=== PATIENT | male | born 1950 | race Caucasian/White ===

== ENCOUNTER → 2019-04-05 08:28 | Outpatient (CLI) | payer MEDICARE, OTHER, SELFPAY ==
--- NOTE | 2019-04-12 08:04 | PM.PFT.1 ---
Pulmonary Function Test Referral & Results Date Patient Seen: 04/05/19 Requesting provider: Светлана Tapia Indication: COPD Results: The spirometry demonstrates an FVC of 3.88 L which is 92% of predicted. The FEV1 was measured at 1.44 L which is 46% of predicted. The FEV1/FVC ratio was 37 which is 51% of predicted. Following the administration of bronchodilator there was no change. Lung volumes show an SVC of 2.72 L which is 61% of predicted. The diffusing capacity was measured at 12.7 to which is 41% of predicted. No hemoglobin value was provided, so no correction for potential anemia could be made, if appropriate. The maximum voluntary ventilation was reduced Interpretation: This study demonstrates moderately severe obstructive lung disease without evidence of benefit following bronchodilator administration There is also moderately severe restrictive lung disease present based on reduction SVC There is also severe reduction in diffusing capacity suggesting significant disease at the capillary alveolar level Altogether this is consistent with a diagnosis of moderately severe COPD
== END ==
PROVIDERS: Visit Provider Internal Medicine
DX: J44.9 Chronic obstructive pulmonary disease, unspecified (principal); F17.200 Nicotine dependence, unspecified, uncomplicated
CPT/HCPCS: 94060; 94726; 94729

== ENCOUNTER → 2021-10-28 15:31 | Outpatient (CLI) | payer MEDICARE, OTHER, SELFPAY ==
--- NOTE | 2021-10-28 | DI.MRI.S_ITS ---
PROCEDURE: MR LUMBAR SPINE WO CON INDICATIONS: Spinal stenosis, site unspecified TECHNIQUE: Noncontrast sagittal T1 spin echo and T2 fast echo, sagittal STIR, and T2 fast spin echo through the lumbar spine. In cases with scoliosis, additional coronal T2 fast spin echo may be performed. COMPARISON: [facility], CT, ABDOMEN/PELVIS WITH CONTRAST, 07/01/2016, 10:42. [facility], , SPINE LUMB 6+VW, 12/01/2014, 14:16. FINDINGS: Image quality: Excellent. Alignment and Curvature: Bilateral posterior lateral wil and pedicle screw fixation from L4-L5 through L5-S1. Remote left hemilaminectomy at both levels. Anterolisthesis of L5 on S1 is similar to the prior CT scan, measuring 8 mm. Again noted is retrolisthesis of L3 on L4, measuring 6 mm. Bone Marrow: Marrow is of normal overall signal. No acute vertebral body compression fractures. Spinal Cord: Conus medullaris terminates at the L2-L3 level. Visualized cord demonstrates normal signal and size. Paraspinous Soft Tissues: No paravertebral masses. T12-L1: Disc bulge. No canal stenosis or foraminal stenosis. L1-L2: Severe disc height loss. Disc bulge. No significant canal stenosis. Mild bilateral foraminal stenosis. L2-L3: Disc bulge. Facet hypertrophy. Mild canal stenosis. Mild right foraminal stenosis. L3-L4: Moderately severe disc height loss. Retrolisthesis of L3 on L4. Borderline canal stenosis. Ftlb-ti-upthbegu bilateral foraminal narrowing. L4-L5: Fused. No canal stenosis. Mild left foraminal stenosis. L5-S1: Fused. Anterolisthesis of L5 on S1. No canal stenosis. Moderate to severe right foraminal narrowing and severe left foraminal narrowing with bilateral foraminal L5 nerve root impingement. IMPRESSION: 1. Remote decompressive laminectomy and fusion from L4 through S1. 2. At L5-S1, there is moderate to severe right foraminal narrowing and severe left foraminal narrowing with bilateral foraminal L5 nerve root impingement. 3. Canal stenosis is mild at L2-L3 and borderline at L3-L4. Dictated by: Jonathan Lopez M.D. on 10/29/2021 at 12:02 Approved by: Jonathan Lopez M.D. on 10/29/2021 at 12:13
== END ==
PROVIDERS: PCP Student in an Organized Health Care Education/Training Program; Referring Provider Student in an Organized Health Care Education/Training Program; Visit Provider Student in an Organized Health Care Education/Training Program
DX: M48.061 Spinal stenosis, lumbar region without neurogenic claudication (principal); M48.07 Spinal stenosis, lumbosacral region; Z98.1 Arthrodesis status
CPT/HCPCS: 72148

== ENCOUNTER 2022-03-15 14:52 | Outpatient (CLI) | payer MEDICARE, OTHER, SELFPAY ==
[2022-03-15] VITALS (7 sets, daily range): BP systolic 141–161; BP diastolic 76–95; PULSE 77–86; RESP 16–23; TEMP 36.6; O2SAT 90–100
--- NOTE | 2022-03-15 14:55 | DI.RAD.S_ITS ---
PROCEDURE: PAIN L/S TRANSFORAMINAL INJECT INDICATIONS: SPONDYLOSIS COMPARISON: None. FINDINGS: Fluoroscopic spot filming was performed to verify placement of spinal needles at the left L3-L4 neural foramen level(s), as labeled on the films. Appropriate location(s) of the needle tip(s) was confirmed by injection of iodinated contrast. IMPRESSION: Access needle at the left L3-L4 neural foramen for transforaminal epidural steroid injection. Dictated by: Ana Laura Gibbs MD, PhD on 03/15/2022 at 16:36 Approved by: Ana Laura Gibbs MD, PhD on 03/15/2022 at 16:36
[2022-03-15] MEDS: MIDAZOLAM 2 MG/2 ML VIAL IV (15:32)
[2022-03-15] MEDS: IOPAMIDOL 15 ML VIAL 3 ML INJ (15:43)
[2022-03-15] MEDS: BUPIVACAINE 0.25% (PF) VIAL 5 ML SUBCUT (15:43)
[2022-03-15] MEDS: BETAMETHASONE 30 MG/5 ML MDV 6 MG INJ (15:44)
[2022-03-15] MEDS: DEXAMETHASONE 10 MG/ML VIAL 20 MG INJ (15:44)
--- NOTE | 2022-03-15 15:53 | PM.PROC.IR.1 ---
Date/Time/Diagnoses Date of procedure: 03/15/22 Time of procedure: 15:53 Pre-procedure diagnosis: 1. FORAMINAL STENOSIS WITH LE SYMPTOMS Post-procedure diagnosis: same Procedure Notes Procedure: 1. FLUOROSCOPICALLY GUIDED CONTRAST CONTROLLED TRANSFORAMINAL EPIDURAL STEROID INJECTION - LEFT L3/4 TFESI Indications: Trever is referred by Dr. Diaz for treatment of Foraminal Stenosis with left LE Symptoms Physician: Osmin Miles Total Fluoroscopy time (seconds): 9 Total sedation minutes: 13 Complications: none Procedure in detail & Post-procedure care: FINDINGS Foraminal Nerve Root Compression secondary to disc disease and facet hypertrophy DESCRIPTION OF PROCEDURE Following review of allergy and review of potential side effects and complications, including, but not necessarily limited to, infection, allergic reaction, local tissue breakdown, stroke, temporary or permanent nerve injury, paralysis, and possible , the patient indicated that the patient understood and agreed to proceed. An informed consent document was signed by the patient, witnessed by a nurse, and placed in the patient's chart. Additionally, other treatment options including medications, modalities, and physical therapy were reviewed with the patient. After review of previous anaesthesic history and IV conscious sedation the patient was deemed safe to proceed with today?s procedure with IV conscious sedation as ASA class II designation. Safety time-out was performed to confirm patient ID, procedure to be performed and site of procedure. IV sedation was accomplished with a combination of 2mg of Versed was administered by the RN after DO order, titrated to patient comfort during the course of the procedure while the patient remained responsive to all verbal commands In the prone position following sterile prep and drape of the lumbar region, the left L3/4 posterior neuroforamen was identified fluoroscopically. The skin was anesthetized via a 25-gauge 1.5-inch needle with 1% lidocaine solution. At this point, a 25-gauge 3.5-inch spinal needle was atraumatically introduced and advanced under fluoroscopic guidance through the posterior left L3/4 neuroforamen to approximately the anterior aspect of the canal. Depth was confirmed on lateral view. Following negative aspiration, injection of approximately 1.5 cc of Isovue 200 under live fluoroscopy in the AP view confirmed excellent flow along the nerve root, into the epidural space without vascular or intrathecal uptake observed Radiological data, including multiple fluoroscopic views of the lumbosacral spine, reveal a spinal needle at the left L3/4 posterior neuroforamen. Subsequent views show flow of contrast material flowing superiorly and inferiorly along the nerve root confirming epidural flow. Subsequently, a test dose of 1.5cc of 1% lidocaine solution was administered and patient was observed for two minutes for signs or symptoms of complications, including abdominal pain, shortness of breath, bilateral upper or lower extremity weakness, nausea and vomiting, prior to steroid injection. At this point, a total of 3cc or 20mg of dexamethasone and 6mg betamethasone was injected without incident. The patient tolerated the procedure well without signs or symptoms of complications prior to transfer to the recovery area continued monitoring without incident. The patient was then transferred to the recovery area where they were observed for an appropriate time after the injection. The patient reported a VAS score of 7 prior to the procedure and a post-procedure VAS of 0. POST OP INSTRUCTIONS The patient was provided a Pain Log to continue to record their response to the target-specific procedure prior to follow-up visit with their referring physician. Additionally, specific post-injection care instructions and a contact number to our office were provided if concerns arise regarding possible complications associated with the procedure are suspected.
== END 2022-03-15 16:08 | disposition home or self-care (01) ==
PROVIDERS: PCP Student in an Organized Health Care Education/Training Program; Referring Provider Physical Medicine & Rehabilitation; Visit Provider Physical Medicine & Rehabilitation
DX: M48.061 Spinal stenosis, lumbar region without neurogenic claudication (principal); M51.16 Intervertebral disc disorders with radiculopathy, lumbar region
CPT/HCPCS: 64483; 99152; J0702; J1100; J2250; J3490

== ENCOUNTER 2022-09-03 18:41 | Inpatient (IN) | payer MEDICARE, OTHER, SELFPAY ==
[2022-09-03] VITALS (10 sets, daily range): BP systolic 163–197; BP diastolic 83–131; PULSE 68–89; RESP 18–34; TEMP 36.5–37; O2SAT 90–98; BMI 17.4
--- NOTE | 2022-09-03 19:09 | DI.CT.S_ITS ---
PROCEDURE: CT STROKE INDICATIONS: right sided facial droop, unsteady gait TECHNIQUE: Noncontrast 4.5 mm thick angled axial sections acquired from the foramen magnum to the vertex, with coronal reformats. For radiation dose reduction, the following was used: automated exposure control, adjustment of mA and/or kV according to patient size. COMPARISON: None. FINDINGS: Image quality: Excellent. CSF spaces: Basal cisterns are patent. No extra-axial fluid collections. The ventricles are symmetric in size and shape. Brain: No intracranial bleeds or masses. There is cerebral volume loss for age, with resultant ventricular and sulcal prominence. There are periventricular and deep white matter chronic small vessel ischemic changes. There is intracranial internal carotid artery atherosclerosis. Skull and face: Calvarium and visualized facial bones appear intact, without suspicious lesions. Sinuses: Visualized sinuses and mastoids are clear. IMPRESSION: 1. No acute intracranial process. 2. Moderate atrophy and chronic microvascular ischemic changes. The above findings were discussed with Dr. Cherri David on 09/03/2022 at 7:25 p.m. This study fulfills neurological imaging criteria for inclusion or exclusion of acute stroke therapies based on available published neurological guidelines. Approved by: Joan Salvador M.D. on 09/03/2022 at 19:27
--- NOTE | 2022-09-03 19:10 | DI.CT.S_ITS ---
PROCEDURE: CT ANGIO HEAD AND NECK INDICATIONS: right sided facial droop, unsteady gait TECHNIQUE: After the administration of intravenous contrast, 1 mm thick sections acquired from the aortic arch through the [place] of [place]. Post-contrast 4.5 mm thick sections then re-acquired from the foramen magnum to the vertex. 3-dimensional cnxmtuc-fkmwwtrmk-azhzvqnomi (MIP) and/or volume rendering reformats were acquired of the central intracranial vasculature and neck separately. For radiation dose reduction, the following was used: automated exposure control, adjustment of mA and/or kV according to patient size. COMPARISON: Outside Film, CT, CT LOW DOSE LUNG CA SCREENING, 06/18/2020, 13:22. [facility], CT, CT STROKE, 09/03/2022, 19:15. FINDINGS: Image quality: Excellent. BRAIN: The ventricular system and cortical sulci demonstrate atrophy, consistent for the patient's stated age. There are areas of hypodensity within the periventricular and subcortical white matter. There is no acute intra-or extra axial fluid collection. No acute hemorrhage, mass lesion or midline shift. Brainstem is unremarkable. Globes are symmetrical. Sinuses are aerated. Multiple rounded lucencies are noted within the calvarium. No priors are available for comparison. 1 cm focus of slight increased attenuation is noted within the subcutaneous fat of the posterior occipital scalp. No priors are available for comparison. HEAD CT ANGIOGRAPHY: Anterior circulation: Intracranial internal carotid arteries are normal in size and flow. The flow within the paired anterior cerebral arteries is normal and symmetric. The flow within the middle cerebral arteries is normal and symmetric. The anterior communicating artery is seen. No aneurysms are seen. Posterior circulation: Right vertebral artery is dominant. Visualized portions of the vertebral arteries demonstrate normal caliber, and join to form a normal appearing basilar artery. Flow within the posterior cerebral arteries is normal and symmetric. No aneurysms are seen. 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 There is interval small dilation of the ascending thoracic aorta measuring 4 cm. This is unchanged compared to prior exam. The origins of the common carotid arteries appear patent. The common carotid arteries demonstrate normal caliber and courses. The bifurcation regions are both widely patent. There is approximate 50% narrowing at the origin of the right internal carotid artery.. Posterior circulation: The origins of the vertebral arteries both appear widely patent. The more superior extracranial portions of both vertebral arteries also demonstrate normal courses and calibers. They join to form a normal appearing basilar artery. Soft tissues: Visualized neck soft tissues demonstrate no suspicious abnormalities. Bones: No suspicious bony lesions. Visualized cervical spine appears normally aligned. IMPRESSION: 1. No acute intracranial process. 2. Moderate atrophy and chronic microvascular ischemic changes. 3. No areas of hemodynamically significant stenosis, vascular occlusion or aneurysmal dilation within the anterior circulation. 4. 50% stenosis is noted at the origin of the right internal carotid artery. 5. Rounded lucencies within calvarium. These could represent prominent intraosseous vascular structures. No priors are available for comparison. If concern is present for potential metastatic disease, bone scan may be obtained. Any quantitative measurements of stenosis were performed using NASCET criteria. Dictated by: Joan Salvador M.D. on 09/03/2022 at 19:37 Approved by: Joan Salvador M.D. on 09/03/2022 at 19:43
--- NOTE | 2022-09-03 19:11 | ED_ITS ---
HPI - General Adult General Chief complaint: Shortness of Breath/Dyspnea Stated complaint: SOB, Can't eat, dizzy, L side pain, Fallx2 today Time Seen by Provider: 09/03/22 18:47 Source: patient Mode of arrival: Wheelchair History of Present Illness HPI narrative: 72-year-old gentleman with a history of COPD with continued tobacco abuse, h istory of BPH and no other significant medical complaints comes in after calling his son and granddaughter to come pick him up at the [facility] where he has been enjoying himself much of the day. Reported falling twice today once where he just ?sort of crumpled another where he stood up look to the left was significantly dizzy and fell backward. He does not describe any injuries with either fall did not hit his head with either fallen is not currently anticoagulated. He complains that he is dizzy which is reason for coming in today. His family notes that he was admitted to [facility] ?a couple of weeks ago?. Family is not quite sure why and the patient says ?for the same thing? but is unable to elucidate further. He notes that he has been short of breath for the past 2 years, he has a mild headache now, he is dizzy he is not nauseated. He does not report fevers, cough, chills, palpitations, lower extremity edema. His son notes that he only spends the day at the [facility], fam pedraza notes that he never drinks, and he felt well enough this morning to follow through with his usual day and plans. Related Data Home Medications Medication Instructions Recorded Confirmed sildenafil 25 mg tablet (Viagra) PO PRN PRN #0 tabs 12/02/15 03/09/22 albuterol sulfate 90 mcg/actuation 1 puff inhalation ONCE 03/09/22 03/09/22 aerosol inhaler (ProAir HFA) fluticasone 500 mcg-salmeterol 50 1 inh inhalation ONCE 03/09/22 03/09/22 mcg/dose blistr powdr for inhalation (Advair Diskus) loratadine 10 mg tablet 10 mg PO DAILY 03/09/22 03/09/22 tamsulosin 0.4 mg capsule 0.4 mg PO BEDTIME 03/09/22 03/09/22 Previous Rx's Medication Instructions Recorded celecoxib 200 mg capsule (Celebrex) 200 mg PO DAILY #30 caps 06/29/22 Allergies Allergy/AdvReac Type Severity Reaction Status Date / Time varenicline [From Chantix] Allergy Severe Difficulty Verified 09/03/22 18:58 Breathing Penicillins [PENICILLINS] AdvReac Severe ITCHING Verified 09/04/22 08:23 bupropion AdvReac Intermediate TREMORS Verified 09/04/22 08:23 [From Wellbutrin SR] hydrocodone [HYDROCODONE] AdvReac Intermediate ITCHING Verified 09/04/22 08:23 Review of Systems Review of Systems Narrative: Pertinent positive and negative findings as per HPI Patient History Medical History COPD (chronic obstructive pulmonary disease) Lumbar foraminal stenosis Lumbar stenosis with neurogenic claudication Tobacco abuse Surgical History H/O nasal polypectomy H/O: vasectomy History of ankle surgery History of hernia surgery History of lumbar surgery S/P lumbar spinal fusion Social History household members: spouse and none Smoking Status: Current every day smoker alcohol intake: current Smoking Status: Current every day smoker alcohol intake frequency: holidays/special occasions only Substance Use Type: does not use Exam Initial Vital Signs Initial Vital Signs: Vital Signs Temperature 97.7 F 09/03/22 18:55 Pulse Rate 89 09/03/22 18:55 Respiratory Rate 18 09/03/22 18:55 Blood Pressure 188/91 H 09/03/22 18:55 Pulse Oximetry 93 09/03/22 18:55 Oxygen Delivery Method Room Air 09/03/22 18:55 General: Older, chronically ill-appearing thin but in no acute distress HEENT: Moist mucous membranes, normal sclera with reactive pupils, poor dentition Neck: No JVD, supple Respiratory: Lungs with minor bibasilar crackles and minor scattered wheeze. Full and symmetrical movement Cardiac: Regular rate and rhythm no murmurs no bruits Abdomen: Soft, nontender, good bowel tones, no flank pain Skin: Warm and dry, no rashes, chronic venous stasis changes. He has scattered subcutaneous nodules right upper chest, midline posterior neck and along his thoracic spine. These are not tender to touch Neurologic: He has a mild right facial droop. Mild dysarthria. Positive Romberg he is unable to stand up without leaning backward and unable to even sit on bed without leaning backward. Does not note weakness in lower extremities or sensory abnormalities. Has some difficulty with heel polanco testing using his left leg. It is not clear if this is new or would have been problematic previously Extremities: No trauma, no lower extremity edema Psych: Cooperative, appropriate insight and affect NIH Stroke Scale/Score (NIHSS) RESULT SUMMARY: 4 points NIH Stroke Scale INPUTS: 1A: Level of consciousness ?> 0 = Alert; keenly responsive 1B: Ask month and age ?> 0 = Both questions right 1C: 'Blink eyes' & 'squeeze hands' ?> 0 = Performs both tasks 2: Horizontal extraocular movements ?> 0 = Normal 3: Visual blake ?> 0 = No visual loss 4: Facial palsy ?> 1 = Minor paralysis (flat nasolabial fold, smile asymmetry) 5A: Left arm motor drift ?> 0 = No drift for 10 seconds 5B: Right arm motor drift ?> 0 = No drift for 10 seconds 6A: Left leg motor drift ?> 0 = No drift for 5 seconds 6B: Right leg motor drift ?> 0 = No drift for 5 seconds 7: Limb Ataxia ?> 1 = Ataxia in 1 Limb 8: Sensation ?> 0 = Normal; no sensory loss 9: Language/aphasia ?> 1 = Mild-moderate aphasia: some obvious changes, without significant limitation 10: Dysarthria ?> 1 = Mild-moderate dysarthria: slurring but can be understood 11: Extinction/inattention ?> 0 = No abnormality Course Orders Ordered: Acetaminophen (Acetaminophen 325 Mg Tablet) 650 mg PO Q6H PRN PRN Reason: Fever/Mild Pain (1-3) Last Admin: 09/04/22 15:34 Dose: 650 mg Documented By: Admin: 09/04/22 08:30 Dose: 650 mg Documented By: BEN Albuterol/Ipratropium (Albuterol/Ipratropium 3 Ml Ampul) 3 ml INH RTQ4HR PRN PRN Reason: Shortness Of Breath Last Admin: 09/04/22 01:22 Dose: 3 ml Documented By: Aspirin (Aspirin Ec 81 Mg Tablet) 81 mg PO DAILY GILMA Last Admin: 09/04/22 08:12 Dose: 81 mg Documented By: SB Atorvastatin Calcium (Atorvastatin 20 Mg Tablet) 80 mg PO BEDTIME [facility] Last Admin: 09/04/22 20:28 Dose: 80 mg Documented By: AM Calcitonin [place] (Calcitonin,[place] 400 Units/2 Ml Mdv) 200 units IM Q12H [facility] Last Admin: 09/04/22 20:30 Dose: 200 units Documented By: AM Heparin Sodium (Porcine) (Heparin 5,000 Unit/Ml Vial) 5,000 unit SUBCUT BID [facility] Last Admin: 09/04/22 20:29 Dose: 5,000 unit Documented By: Admin: 09/04/22 08:12 Dose: 5,000 unit Documented By: SB Hydromorphone HCl (Hydromorphone 0.5 Mg Inj) 0.5 mg IV Q4H PRN PRN Reason: Pain, Moderate (4-6) Last Admin: 09/04/22 20:28 Dose: 0.5 mg Documented By: Admin: 09/04/22 16:46 Dose: 0.5 mg Documented By: Admin: 09/04/22 00:55 Dose: 0.5 mg Documented By: Sodium Chloride (Normal Saline 0.9%) 1,000 mls @ 100 mls/hr IV CONT [facility] Last Admin: 09/05/22 04:10 Dose: 100 mls/hr Documented By: Infusion: 09/04/22 21:50 Dose: 100 mls/hr Documented By: Admin: 09/04/22 16:50 Dose: 200 mls/hr Documented By: Infusion: 09/04/22 16:21 Dose: 100 mls/hr Documented By: Admin: 09/04/22 11:21 Dose: 200 mls/hr Documented By: Infusion: 09/04/22 08:57 Dose: 200 mls/hr Documented By: Admin: 09/04/22 03:57 Dose: 200 mls/hr Documented By: Infusion: 09/04/22 03:23 Dose: 200 mls/hr Documented By: Admin: 09/03/22 22:23 Dose: 200 mls/hr Documented By: MS Ceftriaxone Sodium 1,000 mg/ (Sodium Chloride) 100 mls @ 200 mls/hr IV Q24H [facility] Last Admin: 09/04/22 22:32 Dose: 200 mls/hr Documented By: Infusion: 09/03/22 23:28 Dose: 200 mls/hr Documented By: Admin: 09/03/22 22:58 Dose: 200 mls/hr Documented By: Naloxone HCl (Naloxone 0.4 Mg/Ml Vial) 0.2 mg IV Q2MIN PRN PRN Reason: Opiate Reversal Ondansetron HCl (Ondansetron 4 Mg/2 Ml Inj) 4 mg IV Q8HR PRN PRN Reason: Nausea And Vomiting Last Admin: 09/04/22 20:49 Dose: 4 mg Documented By: Admin: 09/04/22 01:00 Dose: 4 mg Documented By: Oxycodone HCl (Oxycodone Ir 5 Mg Tablet) 5 mg PO Q4HR PRN PRN Reason: Pain, Moderate (4-6) Tamsulosin HCl (Tamsulosin 0.4 Mg Capsule) 0.4 mg PO DAILY GILMA Discontinued Medications Acetaminophen (Acetaminophen 325 Mg Tablet) 975 mg PO NOW ONE Stop: 09/03/22 20:24 Last Admin: 09/03/22 20:41 Dose: 975 mg Documented By: KEN Calcitonin [place] (Calcitonin,[place] 400 Units/2 Ml Mdv) 250 units SUBCUT NOW ONE Stop: 09/03/22 20:04 Last Admin: 09/03/22 21:04 Dose: 250 units Documented By: KEN Calcitonin [place] (Calcitonin,[place] 400 Units/2 Ml Mdv) 200 units IM Q12HR [facility]ILMA Last Admin: 09/04/22 13:05 Dose: Not Given Documented By: Admin: 09/04/22 10:25 Dose: 200 units Documented By: BEN Zoledronic Acid 4 mg/ Sodium (Chloride) 105 mls @ 315 mls/hr IV NOW ONE Stop: 09/03/22 20:04 Last Infusion: 09/03/22 21:57 Dose: 0 mls/hr Documented By: Admin: 09/03/22 20:39 Dose: 315 mls/hr Documented By: SPF Sodium Chloride (Normal Saline 0.9%) 1,000 mls @ 1,000 mls/hr IV BOLUS ONE Stop: 09/03/22 21:02 Last Infusion: 09/03/22 21:57 Dose: 0 mls/hr Documented By: Admin: 09/03/22 20:24 Dose: 1,000 mls/hr Documented By: SPF Potassium Chloride (Potassium Chloride 20 Meq Tab) 40 meq PO NOW ONE Stop: 09/03/22 20:24 Last Admin: 09/03/22 20:41 Dose: 40 meq Documented By: SPF Potassium Chloride (Potassium Chloride 20 Meq Tab) 40 meq PO NOW ONE Stop: 09/04/22 08:30 Last Admin: 09/04/22 10:25 Dose: 40 meq Documented By: SB Vital Signs Vital signs: Vital Signs - 8 hr 09/03/22 18:55 09/03/22 19:00 09/03/22 19:23 Temperature 97.7 F Pulse Rate 89 82 71 Respiratory Rate 18 24 25 H Blood Pressure 188/91 H 182/89 H 163/83 H Pulse Oximetry 93 92 90 L Oxygen Delivery Method Room Air Room Air Room Air 09/03/22 20:00 Temperature Pulse Rate 75 Respiratory Rate 28 H Blood Pressure Pulse Oximetry 90 L Oxygen Delivery Method Room Air Medical Decision Making Lab Data 09/04/22 05:45 09/04/22 05:45 Labs: Lab Results 09/03/22 09/03/22 09/03/22 Range/Units 19:05 19:05 19:05 WBC 11.6 H (4.5-11.0) X10^3/uL RBC 4.62 (4.5-5.9) X10^6/uL Hgb 13.4 L (13.5-17.5) g/dL Hct 40.8 L (41-53) % MCV 88.5 (80-100) fL MCH 29.0 (26-34) PG MCHC 32.8 (30-36) % RDW 13.7 (11.6-14.8) % Plt Count 321 (150-400) X10^3/uL Neut % (Auto) 80.1 H (50-75) % Lymph % (Auto) 7.4 L (25-40) % [place] % (Auto) 11.6 (3-14) % Eos % (Auto) 0.5 L (2-4) % Baso % (Auto) 0.4 (0-2) % Neut # (Auto) 9300 H (9006-2670) /uL Lymph # (Auto) 900 L (5758-7722) /uL [place] # (Auto) 1300 H (0-900) /uL Eos # (Auto) 100 (0-450) /uL Baso # (Auto) 0 (0-100) /uL PT 11.4 (10.1-12.7) SECONDS INR 1.0 (0.9-1.3) APTT 23 L (26-36) SECONDS Sodium 131 L (137-145) mmol/L Potassium 3.2 L (3.4-5.1) mmol/L Chloride 89 L (98-107) mmol/L Carbon Dioxide 39 H (22-32) mmol/L BUN 29 H (9-20) mg/dL Creatinine 1.88 H (0.66-1.25) mg/dL Estimated GFR 37 L (>60) mL/min BUN/Creatinine Ratio 15.4 (6-22) Glucose 94 (80-110) mg/dL Calcium 15.5 H* (8.4-10.2) mg/dL Total Bilirubin 0.9 (0.2-1.3) mg/dL AST 46 (17-59) IU/L ALT 24 (<50) IU/L Alkaline Phosphatase 100 (38-126) U/L Total Creatine Kinase 109 (55-170) U/L CK-MB (CK-2) 2.57 H (<2.37) ng/mL CK-MB (CK-2) Rel Index 2.4 (1.5-5.0) % Troponin I < 0.012 (0.01-0.034) ng/mL Total Protein 6.6 (6.3-8.2) g/dL Albumin 3.3 L (3.5-5.0) g/dL Globulin 3.3 (1.7-4.1) g/dL Albumin/Globulin Ratio 1.0 (1.0-2.8) Urine Color Urine Appearance Urine pH (4.5-8.0) Ur Specific [place] (1.000-1.035) Urine Protein (Negative) Urine Glucose (UA) (Negative) g/dL Urine Ketones (NEGATIVE) Urine Occult Blood (Negative) Urine Nitrate (Negative) Urine Bilirubin (NEGATIVE) Urine Urobilinogen (0.2) E.U./dL Ur Leukocyte Esterase (NEGATIVE) Urine RBC (0-5/HPF) Urine WBC (0-5/HPF) Ur Squamous Epith Cells (0-5/HPF) Urine Bacteria (None) Hyaline Casts (None) Ur Culture Indicated? U Opiates 300ng/mL cut (Negative) Ur Oxycodone Screen (Negative) Urine Methadone Screen (Negative) Ur Barbiturates Screen (Negative) U Tricyclic Antidepress (Negative) Ur Phencyclidine Scrn (Negative) Ur Amphetamines Screen (Negative) U Methamphetamines Scrn (Negative) Ur MDMA Scrn (Ecstasy) (Negative) U Benzodiazepines Scrn (Negative) Urine Cocaine Screen (Negative) U Marijuana (THC) Screen (Negative) Ethyl Alcohol < 10 ( - 10) mg/dL SARS-CoV-2 (PCR) (Negative) 09/03/22 09/03/22 09/03/22 Range/Units 19:40 20:12 20:12 WBC (4.5-11.0) X10^3/uL RBC (4.5-5.9) X10^6/uL Hgb (13.5-17.5) g/dL Hct (41-53) % MCV (80-100) fL MCH (26-34) PG MCHC (30-36) % RDW (11.6-14.8) % Plt Count (150-400) X10^3/uL Neut % (Auto) (50-75) % Lymph % (Auto) (25-40) % [place] % (Auto) (3-14) % Eos % (Auto) (2-4) % Baso % (Auto) (0-2) % Neut # (Auto) (4974-6080) /uL Lymph # (Auto) (8027-6015) /uL [place] # (Auto) (0-900) /uL Eos # (Auto) (0-450) /uL Baso # (Auto) (0-100) /uL PT (10.1-12.7) SECONDS INR (0.9-1.3) APTT (26-36) SECONDS Sodium (137-145) mmol/L Potassium (3.4-5.1) mmol/L Chloride (98-107) mmol/L Carbon Dioxide (22-32) mmol/L BUN (9-20) mg/dL Creatinine (0.66-1.25) mg/dL Estimated GFR (>60) mL/min BUN/Creatinine Ratio (6-22) Glucose (80-110) mg/dL Calcium (8.4-10.2) mg/dL Total Bilirubin (0.2-1.3) mg/dL AST (17-59) IU/L ALT (<50) IU/L Alkaline Phosphatase (38-126) U/L Total Creatine Kinase (55-170) U/L CK-MB (CK-2) (<2.37) ng/mL CK-MB (CK-2) Rel Index (1.5-5.0) % Troponin I (0.01-0.034) ng/mL Total Protein (6.3-8.2) g/dL Albumin (3.5-5.0) g/dL Globulin (1.7-4.1) g/dL Albumin/Globulin Ratio (1.0-2.8) Urine Color Yellow Urine Appearance Slightly cloudy Urine pH 5.5 (4.5-8.0) Ur Specific [place] 1.015 (1.000-1.035) Urine Protein Negative (Negative) Urine Glucose (UA) Negative (Negative) g/dL Urine Ketones Negative (NEGATIVE) Urine Occult Blood Trace-intact (Negative) Urine Nitrate Negative (Negative) Urine Bilirubin Negative (NEGATIVE) Urine Urobilinogen 0.2 (0.2) E.U./dL Ur Leukocyte Esterase 1+ H (NEGATIVE) Urine RBC None seen (0-5/HPF) Urine WBC 10-30/hpf H (0-5/HPF) Ur Squamous Epith Cells 0-1 /hpf (0-5/HPF) Urine Bacteria Many (>30) H (None) Hyaline Casts 0-1/lpf (None) Ur Culture Indicated? Specimen cultured U Opiates 300ng/mL cut Negative (Negative) Ur Oxycodone Screen Negative (Negative) Urine Methadone Screen Negative (Negative) Ur Barbiturates Screen Negative (Negative) U Tricyclic Antidepress Negative (Negative) Ur Phencyclidine Scrn Negative (Negative) Ur Amphetamines Screen Negative (Negative) U Methamphetamines Scrn Negative (Negative) Ur MDMA Scrn (Ecstasy) Negative (Negative) U Benzodiazepines Scrn Negative (Negative) Urine Cocaine Screen Negative (Negative) U Marijuana (THC) Screen Negative (Negative) Ethyl Alcohol ( - 10) mg/dL SARS-CoV-2 (PCR) Negative (Negative) MDM Narrative Medical decision making narrative: CC: Dizziness. This is an acute undiagnosed and potentially life-threatening issue Complicating co-morbidities: COPD recent hospital admission Data collected from: patient, son, granddaughter Social determinants of health that may influence the patients condition: Lives independently with an ailing with increasing gait instability Medical records reviewed: Records from recent hospital stay at would be on have been requested. Once received they show he was seen for chronic low back pain lumbar spine x-ray was done with no significant abnormalities reported and no specific reports of any lytic lesions seen on those films. Differential considered: Stroke, brain tumor, meningitis, sepsis, benign positional vertigo Exam documented above, pertinent findings include: Right facial droop, mild dysarthria and ataxia with continually falling backward. Lab Test results independently reviewed as above. Pertinent findings: CBC shows mild leukocytosis at 11.6 with moderate left shift at 81%. No significant anemia. Chemistries show multiple electrolyte abnormalities with acute kidney injury compared to lab from 2017. Potassium lowest 3.2. Creatinine is 1.88. Mild hyponatremia at 1:31 a.m.. Carbon dioxide elevated at 39. Calcium is critically high at 15.5 CK is slightly elevated at 2.57 however MB fraction is unremarkable Troponin is unremarkable Alcohol level is 0 Independently reviewed EKG: Sinus rhythm at a rate of 74 Normal intervals, normal axis. Nonspecific ST T wave changes. No prior EKGs available for comparison Imaging studies independently reviewed: CT scan of the brain shows no acute intracranial process. Discussed in real- time with Dr. Salvador, radiologist at 7:[address] angiogram of the head and neck shows no areas of hemodynamically significant stenosis, vascular occlusion or aneurysmal dilatation within the anterior circulation. 50% stenosis noted at the origin of the right internal carotid. Incidental finding: Rounded lucencies within the calvarium. These could represent prominent interosseous vascular structures with no prior available for comparison however potential for metastatic disease is possible. In light of his elevated calcium, more thorough search for a primary cancer is going to be appropriate XR reviewed independtly and radiology interpretation: Bones and chest wall:? Multiple osteolytic suspicious bony lesions are found in this patient with recent prior CT scanning that identified multiple osteolytic calvarial lesions.? On review of that prior CT study including the CT angiogram note is made of ad ditional skeletal lesions including at the scapula, clavicles, and sternal manubrial area.? Overlying soft tissues appear unremarkable.? Possible prior healed mid right clavicular fracture. ? IMPRESSION:? 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 No lung lesion seen that would indicate primary lung carcinoma in this patient with relatively large lung volumes and therefore probable longstanding prior smoking history. ? Multiple myeloma is a potential etiology of the appearance noted but additional etiologies of multifocal osseous metastatic disease must also be considered. Dictated by: Brady Naylor M.D. on 09/03/2022 at 20:33 ? ? Treatments: Re-evaluations and Discussion: 8pm patient is re-evaluated. Findings are unchanged. Will begin fluids, bisphosphonate and calcitonin for his acute hypercalcemia with plan on rechecking calcium levels at 2:00 a.m. (6 hours) Clinically he has had a small stroke and will need to be admitted for further workup that including MRI. Currently pending chest x-ray Terms of the possible lucencies in the skull, elevated calcium and concern for a cancer diagnosis his records from would be are now available he was seen for chronic back pain with a x-ray of the lumbar spine done showing no significant abnormalities, no blood work was done. With his acute kidney injury and hypercalcemia would like to see his renal function slightly improved in his GFR slightly improved prior to doing CT chest abdomen and pelvis which I think will be an important part of his workup. It will need to be with IV contrast for best results and doing this in the morning after hydration may be a better option and more protective for his kidneys. Results of that will not impact his current admission. Findings reviewed with patient, his family is updated and patient will be admitted. Care is reviewed with Dr. Vazquez. 920pm chest x-ray reviewed with Radiology. Updated hospitalist on results of chest x-ray increased concern for multiple myeloma as part of his eventual diagnosis. Additional Information: This 72-year-old gentleman with suspected stroke has an uncertain time of onset somewhere between the last 24 and 48 hours is the best guess. Given this, he is not a tPA candidate Discharge Plan Departure Patient Disposition: Admitted As Inpatient Clinical Impression: Hypercalcemia, Acute hypokalemia, Acute kidney injury Stroke Qualifiers: CVA mechanism: unspecified Qualified Code(s): I63.9 - Cerebral infarction, unspecified Admit Date/Time: 09/03/22 20:26 Admit Provider: Teofilo Vazquez
[2022-09-03 19:20] LABS: Add Manual Diff / Slide Review NO; Basophils Absolute Auto 0 /uL (0-100); Basophils Percent Auto 0.4 % (0-2); Eosinophils Absolute Auto 100 /uL (0-450); Eosinophils Percent Auto 0.5 % (2-4); Hematocrit 40.8 % (41-53); Hemoglobin 13.4 g/dL (13.5-17.5); Lymphocytes Absolute Auto 900 /uL (1100-4500); Lymphocytes Percent Auto 7.4 % (25-40); Mean Corpuscular HGB Conc 32.8 % (30-36); Mean Corpuscular Volume 88.5 fL (80-100); Monocytes Absolute Auto 1300 /uL (0-900); Monocytes Percent Auto 11.6 % (3-14); Neutrophils Absolute Auto 9300 /uL (1500-7000); Neutrophils Percent Auto 80.1 % (50-75); Platelet Count 321 X10^3/uL (150-400); Red Blood Cell Count 4.62 X10^6/uL (4.5-5.9); Red Cell Distribution Width 13.7 % (11.6-14.8); White Blood Cell Count 11.6 X10^3/uL (4.5-11.0)
[2022-09-03 19:21] LABS: Prothrombin Time 11.4 SECONDS (10.1-12.7)
[2022-09-03 19:23] LABS: PTT Partial Thromboplastin Tim 23 SECONDS (26-36)
[2022-09-03 19:27] LABS: Alanine Aminotransferase 24 IU/L (<50); Albumin 3.3 g/dL (3.5-5.0); Alkaline Phosphatase 100 U/L (38-126); Aspartate Aminotransferase 46 IU/L (17-59); BUN Creatinine Ratio 15.4 (6-22); Bilirubin Total 0.9 mg/dL (0.2-1.3); Blood Urea Nitrogen 29 mg/dL (9-20); Chloride 89 mmol/L (98-107); Creatine Kinase 109 U/L (55-170); Estimated Glomerular Filt Rate 37 mL/min (>60); Ethanol (ETOH) < 10 mg/dL; Globulin 3.3 g/dL (1.7-4.1); Glucose 94 mg/dL (80-110); Potassium 3.2 mmol/L (3.4-5.1); Sodium 131 mmol/L (137-145); Total Protein 6.6 g/dL (6.3-8.2)
[2022-09-03 19:34] LABS: HEMOLYSIS 19 (0-50)
[2022-09-03 19:37] LABS: Troponin I < 0.012 ng/mL (0.01-0.034)
[2022-09-03 19:42] LABS: CKMB % Relative Index 2.4 % (1.5-5.0); Creatine Kinase MB 2.57 ng/mL (<2.37)
[2022-09-03 19:43] LABS: Carbon Dioxide 39 mmol/L (22-32)
[2022-09-03 19:44] LABS: Calcium 15.5 mg/dL (8.4-10.2)
--- NOTE | 2022-09-03 20:07 | DI.RAD.S_ITS ---
PROCEDURE: XR CHEST 1V INDICATIONS: stroke, hypercalcemia, ? lytic lesions skull TECHNIQUE: One view of the chest was acquired. COMPARISON: [facility], CT, CT ANGIO HEAD AND NECK, 09/03/2022, 19:15. [facility], CT, CT STROKE, 09/03/2022, 19:15. [facility], CR, CHEST 2 VIEW, 08/28/2013, 11:20. FINDINGS: Surgical changes and devices: None. Lungs and pleura: Lungs are clear. No pleural effusions or pneumothorax. Mediastinum: Mediastinal contours appear normal. Heart size is normal. Bones and chest wall: Multiple osteolytic suspicious bony lesions are found in this patient with recent prior CT scanning that identified multiple osteolytic calvarial lesions. On review of that prior CT study including the CT angiogram note is made of additional skeletal lesions including at the scapula, clavicles, and sternal manubrial area. Overlying soft tissues appear unremarkable. Possible prior healed mid right clavicular fracture. IMPRESSION: Definite multifocal relatively sharply demarcated osteolytic lesions involving the osseous elements of the axial and appendicular skeleton. No lung lesion seen that would indicate primary lung carcinoma in this patient with relatively large lung volumes and therefore probable longstanding prior smoking history. Multiple myeloma is a potential etiology of the appearance noted but additional etiologies of multifocal osseous metastatic disease must also be considered. Dictated by: Brady Naylor M.D. on 09/03/2022 at 20:33 Approved by: Brady Naylor M.D. on 09/03/2022 at 20:40
[2022-09-03 20:11] LABS: COVID19 -Nasal RAPID Negative (Negative)
[2022-09-03] MEDS: SODIUM CHLORIDE 0.9% 1,000 ML 1000 ML IV (20:24)
[2022-09-03 20:28] LABS: UR Morphine/Opiate cutoff 300 Negative (Negative); Ur Creatinine Normal (Normal); Ur Specific Gravity Normal (Normal); Urine Amphetamines Negative (Negative); Urine Barbiturates Negative (Negative); Urine Benzodiazepines Negative (Negative); Urine Cocaine Negative (Negative); Urine MDMA Negative (Negative); Urine Methadone Negative (Negative); Urine Methamphetamines Negative (Negative); Urine Oxycodone Negative (Negative); Urine Phencyclidine Negative (Negative); Urine Tetrahydrocannabinol Negative (Negative); Urine Tricyclic Antidepressant Negative (Negative); Urine pH Normal (Normal)
[2022-09-03] MEDS: ZOLEDRONIC ACID 4 MG in SODIUM CHLORIDE 0.9% 100 ML 315 MG IV (20:39)
[2022-09-03] MEDS: POTASSIUM CHLORIDE 20 MEQ TAB 40 MEQ PO (20:41)
[2022-09-03] MEDS: ACETAMINOPHEN 325 MG TABLET 975 MG PO (20:41)
[2022-09-03] MEDS: CALCITONIN,SALMON 400 UNITS/2 ML MDV 250 UNITS SUBCUT (21:04)
--- NOTE | 2022-09-03 21:20 | DI.MRI.S_ITS ---
PROCEDURE: MR HEAD/BRAIN WO CON INDICATIONS: cva? TECHNIQUE: Non-contrast axial T1 spin echo, axial T2 fast spin echo, sagittal and axial FLAIR, coronal T2 fast spin echo, axial gradient echo, axial diffusion and ADC through the brain. COMPARISON: [facility], CT, CT ANGIO HEAD AND NECK, 09/03/2022, 19:15. [facility], CT, CT STROKE, 09/03/2022, 19:15. FINDINGS: Image quality: This examination is limited by involuntary motion artifact. CSF spaces: Ventricles appear symmetric in size and shape. Basal cisterns are patent. No extra-axial fluid collections. Brain: No intracranial bleeds or mass effects. There is cerebral volume loss for age. There are periventricular and deep white matter chronic small vessel ischemic changes. Brainstem appears normal. Diffusion-weighted images show no acute ischemic insults. No chronic ischemic insults. Normal intravascular flow voids are present. Skull and face: Numerous cystic/lucent lesions can be seen within the calvarium. Sinuses: Sinuses and mastoids are clear. IMPRESSION: Motion limited study, yet without definite acute or subacute infarction. Note is made of age-appropriate brain parenchymal volume loss and chronic small vessel ischemic changes. Numerous cystic/lytic bony lesions are seen within the calvarium. Please correlate with known patient history. Dictated by: Bay Tristan M.D. on 09/04/2022 at 8:52 Approved by: Bya Tristan M.D. on 09/04/2022 at 8:54
--- NOTE | 2022-09-03 21:54 | DI.ECHO.S_ITS ---
[facility] +---------+ : : [address] : : : : [place], : : : : [place] [id number] : : : : Phone: [phone] [id number] Echocardiogram Report + + :Name: MAYRA LÓPEZ Study Date: 09/04/2022 Height: 69 in : :[place] [facility] [employer] [facility] ReadingLocation: Weight: 118 lb: : Gender: Male BSA: 1.7 m2 : :: Age: : :Reason For Study: CVA : : Performed By: Lisha Echols : + + Interpretation Summary This is a technically difficult study characterized by off axis images. Normal sinus rhythm. Normal LV size and wall thickness. Normal wall motion and LV systolic function. Ejection fraction is 60-65%. Aortic valve leaflets are moderately thickened and demonstrate moderately reduced leaflet opening. In particular the noncoronary and the left coronary leaflets are partially fused. There is mild associated aortic stenosis and mild associated aortic regurgitation. Peak velocity is 2.8 m/s and mean gradient is 11 mmHg. Otherwise no significant valvular abnormalities. No source of embolism found. No prior study available for comparison. Procedure: A two-dimensional transthoracic echocardiogram with color flow and Doppler was performed. The study quality was technically difficult. There is no prior echocardiogram noted for this patient. Most of the acoustic windows were suboptimal, but the best imaging was obtained from the subcostal window. The patient was in normal sinus rhythm during the exam. Left Ventricle: The left ventricle appears normal in size, wall thickness, and systolic function without any focal wall motion abnormalities. The ejection fraction is estimated to be 60-65%. Right Ventricle: The right ventricle is normal in size and function. Atria: There is no Doppler evidence for an interatrial shunt. Mitral Valve: There is mild mitral annular calcification. There is trace mitral regurgitation. Aortic Valve: The aortic valve is trileaflet. right and non cusps are calcified and possibly fused. The aortic valve area is 1.6 centimeters squared by planimetry. There is mild aortic regurgitation. Tricuspid Valve: The tricuspid valve is normal. There is a trace or physiologic amount of tricuspid regurgitation. Pulmonic Valve: The pulmonic valve is normal in structure and function. There is a trace or physiologic amount of pulmonic regurgitation. Great Vessels: The aortic root is mildly dilated. The ascending aorta is normal in size. The aortic arch is normal in size. The pulmonary artery is normal size. The IVC is dilated (diameter is greater than 2.1 cm) and it collapses less than 50% with a sniff. This suggests a high right atrial pressure of 15 mm Hg. Pericardium/ Pleura There is no pericardial effusion. There is no pleural effusion. MMode/2D Measurements & Calculations LVIDd: 4.6 cm AoV Openin.1 cm LVIDs: 2.7 cm LVOT diam: 2.3 cm IVSd: 0.63 cm Ao root diam: 4.2 cm LVPWd: 0.73 cm asc Aorta Diam: 3.6 cm LV walls. diameter/BSA (cm/m^2): 2.8 Ao Arch Diam (Prox Trans): 2.8 cm LV sys. diameter/BSA (cm/m^2): 1.6 FS: 41.9 % EPSS: 0.93 cm IVC diam: 2.1 cm DELON (plan): 1.6 cm2 Doppler Measurements & Calculations AI P1/2t: 403.2 msec MV E max osmin: 43.5 cm/sec AI dec slope: 251.1 cm/sec2 MV A max osmin: 67.3 cm/sec MV E/A: 0.65 MV P1/2t: 80.3 msec MVA(P1/2t): 2.7 cm2 Electronically signed by: Christy Moss M.D. on Reading Physician:09/04/2022 05:26 PM
[2022-09-03 22:00] LABS: Bilirubin Urine UA NEGATIVE (NEGATIVE); Color Urine UA YELLOW; Glucose Urine UA NEGATIVE (Negative); Ketones Urine UA NEGATIVE (NEGATIVE); Leukocyte Esterase Urine UA 1+ (NEGATIVE); Nitrite Urine UA NEGATIVE (Negative); Occult Blood Urine UA TRACE-INTACT (Negative); Protein Urine UA NEGATIVE (Negative); Specific Gravity Urine UA 1.015 (1.000-1.035); Urobilinogen Urine UA 0.2 E.U./dL (0.2); pH Urine UA 5.5 (4.5-8.0)
[2022-09-03 22:01] LABS: Appearance Urine UA Slightly Cloudy
[2022-09-03 22:02] LABS: Bacteria Urine Many (>30); Culture Indicated Urine Specimen Cultured; Hyaline Casts Urine 0-1/LPF; RBC Urine None Seen (0-5/HPF); Squamous Epithelial Cell Urine 0-1 /HPF (0-5/HPF); WBC Urine 10-30/HPF (0-5/HPF)
[2022-09-03] MEDS: SODIUM CHLORIDE 0.9% 1,000 ML 200 ML IV (22:23)
--- NOTE | 2022-09-03 22:27 | PC.NURSE ---
Patient states he is normally on 2L NC oxygen at home at rest (sleep). Patients O2 here on 2L has been 98%. Given his history of COPD we decreased his O2 to 1L NC at rest.
[2022-09-03] MEDS: cefTRIAXone 1,000 MG in SODIUM CHLORIDE 0.9% 100 ML 200 MG IV (22:58)
--- NOTE | 2022-09-03 23:01 | P.HP_ITS ---
History of Present Illness History of Present Illness Date Patient Seen: 09/03/22 Time Patient Seen: 22:30 Chief complaint: SOB, Can't eat, dizzy, L side pain, Fallx2 today Narrative: Mr. Mcelroy is a 72M with PMH COPD on home O2, active smoker, BPH who comes in to the hospital with multiple concerns, but primarily for weakness. [place]. He had a couple of falls where his legs felt like jello. He has felt dizziness. He has had chronically a poor appetite and has also been losing weight. He went to another hospital a few weeks ago for similar symptoms. He notes he has chronic shortness of breath, and chronic cough. No fevers/chills. He notes he has had progressively worsening back boo for a few weeks at least. He has had some right sided flank pain. He was noted to have a facial droop in the ED and it was not new from today, but unclear the chronicity. In the ED workup was done, vitals notable for afebrile, heart rate in the 80s, blood pressure 180s/90s, sats 90-93% on room air. He was placed on oxygen. NIH 4 . Labs reviewed by me and notable for WBC 11.6, hgb 13.4, plts 321. INR 1.0. Creatinine 1.88. Na 131, k 3.2. Ca 15.5. Albumin 3.3. Trop negative. CT head reviewed by me and negative for a cute process. CT angiogram of head and neck showed lucencies in the bone, with no acute process, but 50% R ICA stenosis. Chest xray showed bony lucencies. He was ordered for aspirin, fluids, calcitonin, and bisphosphonate. He was admitted for further treatment. [facility] Medical History COPD (chronic obstructive pulmonary disease) Lumbar foraminal stenosis Lumbar stenosis with neurogenic claudication Tobacco abuse Surgical History H/O nasal polypectomy H/O: vasectomy History of ankle surgery History of hernia surgery History of lumbar surgery S/P lumbar spinal fusion Social History Smoking Status: Current every day smoker Meds Home Medications and Allergies Home Medications Medication Instructions Recorded Confirmed Type sildenafil 25 mg tablet (Viagra) PO PRN PRN #0 tabs 12/02/15 03/09/22 History albuterol sulfate 90 mcg/actuation 1 puff inhalation ONCE 03/09/22 03/09/22 H istory aerosol inhaler (ProAir HFA) fluticasone 500 mcg-salmeterol 50 1 inh inhalation ONCE 03/09/22 03/09/22 History mcg/dose blistr powdr for inhalation (Advair Diskus) loratadine 10 mg tablet 10 mg PO DAILY 03/09/22 03/09/22 History tamsulosin 0.4 mg capsule 0.4 mg PO BEDTIME 03/09/22 03/09/22 History celecoxib 200 mg capsule (Celebrex) 200 mg PO DAILY #30 caps 06/29/22 06/29/22 Rx Allergies Allergy/AdvReac Type Severity Reaction Status Date / Time Penicillins [PENICILLINS] Allergy Severe ITCHING Verified 09/03/22 18:58 varenicline [From Chantix] Allergy Severe Difficulty Verified 09/03/22 18:58 Breathing bupropion Allergy Intermediate TREMORS Verified 09/03/22 18:58 [From Wellbutrin SR] hydrocodone [HYDROCODONE] Allergy Intermediate ITCHING Verified 09/03/22 18:58 Review of Systems Review of Systems Narrative: 14 systems reviewed and negative aside from what is noted in HPI Exam Vital Signs (past 8 hours): - 09/03/22 18:55 09/03/22 19:00 09/03/22 19:23 Temperature 97.7 F Pulse Rate 89 82 71 Respiratory Rate 18 24 25 H Blood Pressure 188/91 H 182/89 H 163/83 H Pulse Oximetry 93 92 90 L Oxygen Delivery Method Room Air Room Air Room Air Oxygen Flow Rate 09/03/22 20:00 09/03/22 20:30 09/03/22 20:50 Temperature 98.6 F Pulse Rate 75 71 74 Respiratory Rate 28 H 24 27 H Blood Pressure 197/90 H Pulse Oximetry 90 L 90 L 91 Oxygen Delivery Method Room Air Room Air Room Air Oxygen Flow Rate 09/03/22 21:00 09/03/22 21:00 09/03/22 21:30 Temperature Pulse Rate 68 Respiratory Rate 25 H Blood Pressure 185/93 H 194/131 H Pulse Oximetry 98 Oxygen Delivery Method Nasal Cannula Oxygen Flow Rate 2 09/03/22 21:30 09/03/22 21:44 09/03/22 21:44 Temperature Pulse Rate 73 78 Respiratory Rate 20 34 H Blood Pressure 180/99 H Pulse Oximetry 98 98 95 Oxygen Delivery Method Nasal Cannula Nasal Cannula Nasal Cannula Oxygen Flow Rate 2 2 1 Oxygen Delivery Method Nasal Cannula Oxygen Flow Rate 1 Narrative Exam Narrative: GEN: no acute distress, cachectic, chronically ill appearing HEENT: moist mucous membranes, PERRL SKIN: fleshy mass on back of head CV: regular rate and rhythm, no murmurs PULM: clear bilaterally, no wheezes, rhonchi, rales ABD: soft, nontender, nondistended, no organomegaly, normal bowel sounds EXT: warm and well perfused with no edema NEURO: awake, alert, oriented, mild facial droop, positive romberg, normal upper and lower extremity strength bilaterally Objective Labs 09/03/22 19:05 09/03/22 19:05 Labs: Laboratory Results - last 24 hr 09/03/22 09/03/22 09/03/22 19:05 19:05 19:05 WBC 11.6 H RBC 4.62 Hgb 13.4 L Hct 40.8 L MCV 88.5 MCH 29.0 MCHC 32.8 RDW 13.7 Plt Count 321 Neut % (Auto) 80.1 H Lymph % (Auto) 7.4 L [place] % (Auto) 11.6 Eos % (Auto) 0.5 L Baso % (Auto) 0.4 Neut # (Auto) 9300 H Lymph # (Auto) 900 L [place] # (Auto) 1300 H Eos # (Auto) 100 Baso # (Auto) 0 PT 11.4 INR 1.0 APTT 23 L Sodium 131 L Potassium 3.2 L Chloride 89 L Carbon Dioxide 39 H BUN 29 H Creatinine 1.88 H Estimated GFR 37 L BUN/Creatinine Ratio 15.4 Glucose 94 Calcium 15.5 H* Total Bilirubin 0.9 AST 46 ALT 24 Alkaline Phosphatase 100 Total Creatine Kinase 109 CK-MB (CK-2) 2.57 H CK-MB (CK-2) Rel Index 2.4 Troponin I < 0.012 Total Protein 6.6 Albumin 3.3 L Globulin 3.3 Albumin/Globulin Ratio 1.0 Urine Color Urine Appearance Urine pH Ur Specific [place] Urine Protein Urine Glucose (UA) Urine Ketones Urine Occult Blood Urine Nitrate Urine Bilirubin Urine Urobilinogen Ur Leukocyte Esterase Urine RBC Urine WBC Ur Squamous Epith Cells Urine Bacteria Hyaline Casts Ur Culture Indicated? U Opiates 300ng/mL cut Ur Oxycodone Screen Urine Methadone Screen Ur Barbiturates Screen U Tricyclic Antidepress Ur Phencyclidine Scrn Ur Amphetamines Screen U Methamphetamines Scrn Ur MDMA Scrn (Ecstasy) U Benzodiazepines Scrn Urine Cocaine Screen U Marijuana (THC) Screen Ethyl Alcohol < 10 SARS-CoV-2 (PCR) 09/03/22 09/03/22 09/03/22 19:40 20:12 20:12 WBC RBC Hgb Hct MCV MCH MCHC RDW Plt Count Neut % (Auto) Lymph % (Auto) [place] % (Auto) Eos % (Auto) Baso % (Auto) Neut # (Auto) Lymph # (Auto) [place] # (Auto) Eos # (Auto) Baso # (Auto) PT INR APTT Sodium Potassium Chloride Carbon Dioxide BUN Creatinine Estimated GFR BUN/Creatinine Ratio Glucose Calcium Total Bilirubin AST ALT Alkaline Phosphatase Total Creatine Kinase CK-MB (CK-2) CK-MB (CK-2) Rel Index Troponin I Total Protein Albumin Globulin Albumin/Globulin Ratio Urine Color Yellow Urine Appearance Slightly cloudy Urine pH 5.5 Ur Specific [place] 1.015 Urine Protein Negative Urine Glucose (UA) Negative Urine Ketones Negative Urine Occult Blood Trace-intact Urine Nitrate Negative Urine Bilirubin Negative Urine Urobilinogen 0.2 Ur Leukocyte Esterase 1+ H Urine RBC None seen Urine WBC 10-30/hpf H Ur Squamous Epith Cells 0-1 /hpf Urine Bacteria Many (>30) H Hyaline Casts 0-1/lpf Ur Culture Indicated? Specimen cultured U Opiates 300ng/mL cut Negative Ur Oxycodone Screen Negative Urine Methadone Screen Negative Ur Barbiturates Screen Negative U Tricyclic Antidepress Negative Ur Phencyclidine Scrn Negative Ur Amphetamines Screen Negative U Methamphetamines Scrn Negative Ur MDMA Scrn (Ecstasy) Negative U Benzodiazepines Scrn Negative Urine Cocaine Screen Negative U Marijuana (THC) Screen Negative Ethyl Alcohol SARS-CoV-2 (PCR) Negative Assessment & Plan Assessment & Plan narrative: 1. Severe hypercalcemia -suspect malignancy as most likely etiology -for further workup though will order PTH -suspect weakness is largely secondary to hypercalcemia -will treat with IV fluids, calcitonin BID -already received bisphosphonate in ED -recheck calcium in AM, prior to next scheduled dose of calcitonin -for now treat with aggressive fluid rehydration 2. MONO -suspect possibly secondary to malignancy -may be secondary to hypovolemia -ordered IV fluids as above -suspect will improve creatinine -if not improving will need further workup including imaging, urine electrolytes 3. Weakness, facial droop -unclear time course, but clearly did not start within 24 hours -CT head negative for acute process, CTA head/neck showed 50% R ICA stenosis -CVA will need to be ruled out as etiology -MRI ordered, can also evaluate for possible mass as cause of symptoms -other etiology is possible hypercalcemia -for now treat as possible CVA -keep on tele -check NIH q4 -ordered aspirin, statin -check echo -PT/OT, speech eval 4. Bone lucencies -have high concern for possible multiple myeloma with hypercalcemia, mono, and anemia also noted -if not myeloma, concern would be another type of malignancy -will send spep with fixation, quantitave immunoglobins, light chains -when mono resolved consider CT imaging with contrast for further evaluation -will need oncology referral at time of discharge 5. COPD, active smoker, chronic respiratory failure -encourage cessation -ordered low dose nicotine patch -ordere prn nebs -continue oxygen 6. Presume UTI -UA positive for WBCs, bacteria -ordered ceftriaxone -follow up culture 7. Skin growith, back of neck -concern for possible plasmacytoma vs other malignant etiology -may need outpatient biopsy I have discussed plan and obtained history from the patient. I have discussed plan of care with ED physician and bedside nures. I have reviewed labs, chest imaging, CT head. CODE: Full Proxy: Jory Mcelroy, spouse Quality [facility] - Meds 'Current medications' to include all prescriptions, [id number] products, herbals, cannabis/cannabidiol products, and vitamin/mineral/dietary (nutritional) supplements. I have utilized all available resources to obtain, update, or review the kristine ent?s current medications. [If Yes, STOP here]: Yes
[2022-09-04] VITALS (10 sets, daily range): BP systolic 118–185; BP diastolic 71–133; PULSE 65–68; RESP 16–24; TEMP 36.5–37.8; O2SAT 90–98
[2022-09-04] MEDS: HYDROMORPHONE 0.5 MG INJ IV ×3 (00:55→20:28)
[2022-09-04] MEDS: ONDANSETRON 4 MG/2 ML INJ IV ×2 (01:00→20:49)
[2022-09-04] MEDS: ALBUTEROL/IPRATROPIUM 3 ML AMPUL INH (01:22)
[2022-09-04 01:53] LABS: Alanine Aminotransferase 21 IU/L (<50); Albumin 2.7 g/dL (3.5-5.0); Alkaline Phosphatase 85 U/L (38-126); Aspartate Aminotransferase 39 IU/L (17-59); BUN Creatinine Ratio 13.4 (6-22); Bilirubin Total 0.5 mg/dL (0.2-1.3); Blood Urea Nitrogen 25 mg/dL (9-20); Carbon Dioxide 35 mmol/L (22-32); Chloride 96 mmol/L (98-107); Estimated Glomerular Filt Rate 37 mL/min (>60); Globulin 2.8 g/dL (1.7-4.1); Glucose 101 mg/dL (80-110); HEMOLYSIS < 15 (0-50); Potassium 3.4 mmol/L (3.4-5.1); Sodium 132 mmol/L (137-145); Total Protein 5.5 g/dL (6.3-8.2)
[2022-09-04 02:02] LABS: Calcium 13.3 mg/dL (8.4-10.2)
[2022-09-04 02:05] LABS: Troponin I 0.022 ng/mL (0.01-0.034)
[2022-09-04] MEDS: SODIUM CHLORIDE 0.9% 1,000 ML 200 ML IV ×3 (03:57→16:50)
[2022-09-04 06:14] LABS: BUN Creatinine Ratio 13.1 (6-22); Blood Urea Nitrogen 25 mg/dL (9-20); Carbon Dioxide 35 mmol/L (22-32); Chloride 97 mmol/L (98-107); Estimated Glomerular Filt Rate 36 mL/min (>60); Glucose 99 mg/dL (80-110); HEMOLYSIS < 15 (0-50); Potassium 3.5 mmol/L (3.4-5.1); Sodium 134 mmol/L (137-145)
[2022-09-04 06:18] LABS: Calcium 13.2 mg/dL (8.4-10.2)
[2022-09-04 06:25] LABS: Add Manual Diff / Slide Review NO; Basophils Absolute Auto 0 /uL (0-100); Basophils Percent Auto 0.3 % (0-2); Eosinophils Absolute Auto 0 /uL (0-450); Eosinophils Percent Auto 0.4 % (2-4); Hematocrit 38.6 % (41-53); Lymphocytes Absolute Auto 400 /uL (1100-4500); Lymphocytes Percent Auto 3.3 % (25-40); Mean Corpuscular HGB Conc 33.7 % (30-36); Mean Corpuscular Hemoglobin 29.8 PG (26-34); Mean Corpuscular Volume 88.6 fL (80-100); Monocytes Absolute Auto 700 /uL (0-900); Monocytes Percent Auto 6.5 % (3-14); Neutrophils Absolute Auto 10100 /uL (1500-7000); Neutrophils Percent Auto 89.5 % (50-75); Platelet Count 243 X10^3/uL (150-400); Red Blood Cell Count 4.36 X10^6/uL (4.5-5.9); Red Cell Distribution Width 13.8 % (11.6-14.8); White Blood Cell Count 11.2 X10^3/uL (4.5-11.0)
[2022-09-04] MEDS: ASPIRIN EC 81 MG TABLET PO (08:12)
[2022-09-04] MEDS: HEPARIN 5,000 UNIT/ML VIAL 5000 UNIT SUBCUT ×2 (08:12→20:29)
[2022-09-04] MEDS: ACETAMINOPHEN 325 MG TABLET 650 MG PO ×2 (08:30→15:34)
[2022-09-04] MEDS: CALCITONIN,SALMON 400 UNITS/2 ML MDV 200 UNITS IM ×2 (10:25→20:30)
[2022-09-04] MEDS: POTASSIUM CHLORIDE 20 MEQ TAB 40 MEQ PO (10:25)
--- NOTE | 2022-09-04 14:57 | CM.DANOTE ---
DCP/Assessment: Reviewed chart. Patient is a 72yr old male admitted to . with shortness of breath. Patient smoker with h/o COPD on home 02. PCP is Inge Diaz. Primary payor is 1)Medicare 2)[employer] Met with patient briefly explained CM/SW role. Patient sleepy at time of visit. 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 Patient drives at baseline but indicates that prior to admit he used cane and walker for a few days. Work up in progress high concern by provider of multiple myeloma? PT/OT and dietary consults obtained. P: CM team to follow closely for needs. Too soon to determine plan but suspect patient will want to return home with home health? [facility] Discharge Planning/Care Management CM Discharge Assessment Start: 09/04/22 14:48 Freq: Status: Active Protocol: Document 09/04/22 14:48 KJS (Rec: 09/04/22 14:57 KJS [id number]) Discharge Planning Assessment Assigned Director Sales Training PARAMJIT Anton Contact Information Aditi Mcelroy (spouse) # [phone] Advance Directives? No History Provided By Patient Prior Living Arrangements House Household Members spouse,none Comment Patient reports that he is caregiver to his spouse. Type of transporation used prior to Drives own vehicle admit Independent with ADL's Yes: Prior to admit patient reports mostly I. Is patient alert and oriented? Yes Caregiver for Another Yes: Spouse Community Services used prior to Oxygen Therapy admission: DME Already Rented / Owned FWW / Walker,Cane Comment Patient reports that he had to use both cane and walker prior to admit. Patient reports that normally he does not use either. Patient reports needing both for approximately 2dys. Comment Pending progress, patient would like to go home? Too soon to tell. Therapy evaluations pending. Transportation Arrangement Family/friends? Referrals Initiated Other Additional Comment Patient may need HH or SNF depending on progress. Whiteboard Updated in Patient Room with Yes name and ext. # of Director Sales Training Review Status In Process Next Review Type Continued Stay Review
--- NOTE | 2022-09-04 15:21 | PM.PN.1 ---
Subjective Subjective Date Patient Seen: 09/04/22 Interval history: 72 yo with COPD, on home O2 resented with weakness, dec appetite, weight loss, back pain. W/u suspicious for MM. Hypercalcemia improving with fluids and Zometa Exam Vital Signs (past 8 hours): - 09/04/22 08:25 09/04/22 09:00 Pulse Oximetry 90 L 96 Oxygen Delivery Method Nasal Cannula Nasal Cannula Oxygen Flow Rate 1.5 1 Oxygen Delivery Method Nasal Cannula Oxygen Flow Rate 1 Narrative Exam Narrative: Gen: lethargic, weak Lungs: clear CV: regular Ext: no edema Objective Labs 09/04/22 05:45 09/04/22 05:45 Labs: Laboratory Results - last 24 hr 09/03/22 09/03/22 09/03/22 19:05 19:05 19:05 WBC 11.6 H RBC 4.62 Hgb 13.4 L Hct 40.8 L MCV 88.5 MCH 29.0 MCHC 32.8 RDW 13.7 Plt Count 321 Neut % (Auto) 80.1 H Lymph % (Auto) 7.4 L [place] % (Auto) 11.6 Eos % (Auto) 0.5 L Baso % (Auto) 0.4 Neut # (Auto) 9300 H Lymph # (Auto) 900 L [place] # (Auto) 1300 H Eos # (Auto) 100 Baso # (Auto) 0 PT 11.4 INR 1.0 APTT 23 L Sodium 131 L Potassium 3.2 L Chloride 89 L Carbon Dioxide 39 H BUN 29 H Creatinine 1.88 H Estimated GFR 37 L BUN/Creatinine Ratio 15.4 Glucose 94 Calcium 15.5 H* Total Bilirubin 0.9 AST 46 ALT 24 Alkaline Phosphatase 100 Total Creatine Kinase 109 CK-MB (CK-2) 2.57 H CK-MB (CK-2) Rel Index 2.4 Troponin I < 0.012 Total Protein 6.6 Albumin 3.3 L Globulin 3.3 Albumin/Globulin Ratio 1.0 Urine Color Urine Appearance Urine pH Ur Specific [place] Urine Protein Urine Glucose (UA) Urine Ketones Urine Occult Blood Urine Nitrate Urine Bilirubin Urine Urobilinogen Ur Leukocyte Esterase Urine RBC Urine WBC Ur Squamous Epith Cells Urine Bacteria Hyaline Casts Ur Culture Indicated? U Opiates 300ng/mL cut Ur Oxycodone Screen Urine Methadone Screen Ur Barbiturates Screen U Tricyclic Antidepress Ur Phencyclidine Scrn Ur Amphetamines Screen U Methamphetamines Scrn Ur MDMA Scrn (Ecstasy) U Benzodiazepines Scrn Urine Cocaine Screen U Marijuana (THC) Screen Ethyl Alcohol < 10 SARS-CoV-2 (PCR) 09/03/22 09/03/22 09/03/22 19:40 20:12 20:12 WBC RBC Hgb Hct MCV MCH MCHC RDW Plt Count Neut % (Auto) Lymph % (Auto) [place] % (Auto) Eos % (Auto) Baso % (Auto) Neut # (Auto) Lymph # (Auto) [place] # (Auto) Eos # (Auto) Baso # (Auto) PT INR APTT Sodium Potassium Chloride Carbon Dioxide BUN Creatinine Estimated GFR BUN/Creatinine Ratio Glucose Calcium Total Bilirubin AST ALT Alkaline Phosphatase Total Creatine Kinase CK-MB (CK-2) CK-MB (CK-2) Rel Index Troponin I Total Protein Albumin Globulin Albumin/Globulin Ratio Urine Color Yellow Urine Appearance Slightly cloudy Urine pH 5.5 Ur Specific [place] 1.015 Urine Protein Negative Urine Glucose (UA) Negative Urine Ketones Negative Urine Occult Blood Trace-intact Urine Nitrate Negative Urine Bilirubin Negative Urine Urobilinogen 0.2 Ur Leukocyte Esterase 1+ H Urine RBC None seen Urine WBC 10-30/hpf H Ur Squamous Epith Cells 0-1 /hpf Urine Bacteria Many (>30) H Hyaline Casts 0-1/lpf Ur Culture Indicated? Specimen cultured U Opiates 300ng/mL cut Negative Ur Oxycodone Screen Negative Urine Methadone Screen Negative Ur Barbiturates Screen Negative U Tricyclic Antidepress Negative Ur Phencyclidine Scrn Negative Ur Amphetamines Screen Negative U Methamphetamines Scrn Negative Ur MDMA Scrn (Ecstasy) Negative U Benzodiazepines Scrn Negative Urine Cocaine Screen Negative U Marijuana (THC) Screen Negative Ethyl Alcohol SARS-CoV-2 (PCR) Negative 09/04/22 09/04/22 09/04/22 01:30 01:30 05:45 WBC 11.2 H RBC 4.36 L Hgb 13.0 L Hct 38.6 L MCV 88.6 MCH 29.8 MCHC 33.7 RDW 13.8 Plt Count 243 Neut % (Auto) 89.5 H Lymph % (Auto) 3.3 L [place] % (Auto) 6.5 Eos % (Auto) 0.4 L Baso % (Auto) 0.3 Neut # (Auto) 35942 H Lymph # (Auto) 400 L [place] # (Auto) 700 Eos # (Auto) 0 Baso # (Auto) 0 PT INR APTT Sodium 132 L Potassium 3.4 Chloride 96 L Carbon Dioxide 35 H BUN 25 H Creatinine 1.87 H Estimated GFR 37 L BUN/Creatinine Ratio 13.4 Glucose 101 Calcium 13.3 H* Total Bilirubin 0.5 AST 39 ALT 21 Alkaline Phosphatase 85 Total Creatine Kinase CK-MB (CK-2) CK-MB (CK-2) Rel Index Troponin I 0.022 Total Protein 5.5 L Albumin 2.7 L Globulin 2.8 Albumin/Globulin Ratio 1.0 Urine Color Urine Appearance Urine pH Ur Specific [place] Urine Protein Urine Glucose (UA) Urine Ketones Urine Occult Blood Urine Nitrate Urine Bilirubin Urine Urobilinogen Ur Leukocyte Esterase Urine RBC Urine WBC Ur Squamous Epith Cells Urine Bacteria Hyaline Casts Ur Culture Indicated? U Opiates 300ng/mL cut Ur Oxycodone Screen Urine Methadone Screen Ur Barbiturates Screen U Tricyclic Antidepress Ur Phencyclidine Scrn Ur Amphetamines Screen U Methamphetamines Scrn Ur MDMA Scrn (Ecstasy) U Benzodiazepines Scrn Urine Cocaine Screen U Marijuana (THC) Screen Ethyl Alcohol SARS-CoV-2 (PCR) 09/04/22 05:45 WBC RBC Hgb Hct MCV MCH MCHC RDW Plt Count Neut % (Auto) Lymph % (Auto) [place] % (Auto) Eos % (Auto) Baso % (Auto) Neut # (Auto) Lymph # (Auto) [place] # (Auto) Eos # (Auto) Baso # (Auto) PT INR APTT Sodium 134 L Potassium 3.5 Chloride 97 L Carbon Dioxide 35 H BUN 25 H Creatinine 1.91 H Estimated GFR 36 L BUN/Creatinine Ratio 13.1 Glucose 99 Calcium 13.2 H* Total Bilirubin AST ALT Alkaline Phosphatase Total Creatine Kinase CK-MB (CK-2) CK-MB (CK-2) Rel Index Troponin I Total Protein Albumin Globulin Albumin/Globulin Ratio Urine Color Urine Appearance Urine pH Ur Specific [place] Urine Protein Urine Glucose (UA) Urine Ketones Urine Occult Blood Urine Nitrate Urine Bilirubin Urine Urobilinogen Ur Leukocyte Esterase Urine RBC Urine WBC Ur Squamous Epith Cells Urine Bacteria Hyaline Casts Ur Culture Indicated? U Opiates 300ng/mL cut Ur Oxycodone Screen Urine Methadone Screen Ur Barbiturates Screen U Tricyclic Antidepress Ur Phencyclidine Scrn Ur Amphetamines Screen U Methamphetamines Scrn Ur MDMA Scrn (Ecstasy) U Benzodiazepines Scrn Urine Cocaine Screen U Marijuana (THC) Screen Ethyl Alcohol SARS-CoV-2 (PCR) [facility] Medical History COPD (chronic obstructive pulmonary disease) Lumbar foraminal stenosis Lumbar stenosis with neurogenic claudication Tobacco abuse Surgical History H/O nasal polypectomy H/O: vasectomy History of ankle surgery History of hernia surgery History of lumbar surgery S/P lumbar spinal fusion Social History household members: spouse and none Smoking Status: Current every day smoker alcohol intake: current Assessment & Plan Assessment & Plan narrative: 1. Severe symptomatic hypercalcemia -suspect malignancy as most likely etiology, diffuse bone lucencies c/w MM -for further workup though will order PTH -weakness, dec appetite, weight loss all attributable to hypercalcemia -rec'd Zometa 09/03 -cont IV fluids, calcitonin -spep, immunoelectrophoresis, light chains pending 2. MONO -suspect possibly secondary to MM -cont fluids -renal US 3. Weakness, facial droop -likely hypercalcemia related vs CVA -unclear time course, but clearly did not start within 24 hours -CT head negative for acute process, CTA head/neck showed 50% R ICA stenosis -MRI neg for CVA -for now treat as possible CVA -cont aspirin, statin -tele -check echo -PT/OT, speech eval -d/c'd neuro checks 4. Bone lucencies -have high concern for possible multiple myeloma with hypercalcemia, mono, and anemia also noted -if not myeloma, concern would be another type of malignancy -spep with fixation, quantitave immunoglobins, light chains -when mono resolved consider CT imaging with contrast for further evaluation -will need oncology referral at time of discharge 5. COPD, active smoker, chronic respiratory failure -encourage cessation -ordered low dose nicotine patch -ordere prn nebs -continue oxygen 6. Presume UTI -UA positive for WBCs, bacteria -ordered ceftriaxone -urine cx NGTD, final pending, d/c abx if cx neg 7. Skin growth, back of neck -concern for possible plasmacytoma vs other malignant etiology -may need outpatient biopsy
--- NOTE | 2022-09-04 15:37 | DI.US.S_ITS ---
PROCEDURE: US RENAL COMPLETE INDICATIONS: RENAL FAILURE TECHNIQUE: Real-time scanning was performed of the kidneys and bladder, with image documentation. COMPARISON: None. FINDINGS: Kidneys: Kidneys are normal in size. Right kidney measures 11.9 cm long; left kidney measures 11.7 cm long. Right renal cortical thickness is 1.4 cm; left renal cortical thickness is 1.2 cm. Renal cortical echotexture is normal. Mild prominence of right renal collecting system is seen. No left-sided hydronephrosis. No gross nephrolithiasis. No suspicious solid mass lesions. Bladder: Micheal catheter is seen in a decompressed urinary bladder. Miscellaneous: No free pelvic fluid. IMPRESSION: 1. Mild right-sided hydronephrosis. No nephrolithiasis is seen. No left-sided hydronephrosis. No gross solid appearing renal lesion. 2 Michael catheter in a decompressed urinary bladder. Dictated by: Calvin Harrison M.D. on 09/05/2022 at 8:01 Approved by: Calvin Harrison M.D. on 09/05/2022 at 8:02
[2022-09-04] MEDS: ATORVASTATIN 20 MG TABLET 80 MG PO (20:28)
[2022-09-04] MEDS: cefTRIAXone 1,000 MG in SODIUM CHLORIDE 0.9% 100 ML 200 MG IV (22:32)
[2022-09-05] VITALS (11 sets, daily range): BP systolic 146–167; BP diastolic 71–85; PULSE 58–79; RESP 18–24; TEMP 36.3–37.1; O2SAT 91–99
[2022-09-05] MEDS: SODIUM CHLORIDE 0.9% 1,000 ML 100 ML IV (04:10)
[2022-09-05] MEDS: ACETAMINOPHEN 325 MG TABLET 650 MG PO (05:48)
[2022-09-05 06:50] LABS: Blood Urea Nitrogen 31 mg/dL (9-20); Calcium 11.2 mg/dL (8.4-10.2); Carbon Dioxide 30 mmol/L (22-32); Chloride 98 mmol/L (98-107); Estimated Glomerular Filt Rate 38 mL/min (>60); Glucose 96 mg/dL (80-110); HEMOLYSIS 16 (0-50); Sodium 131 mmol/L (137-145)
[2022-09-05 06:51] LABS: Add Manual Diff / Slide Review NO; Basophils Absolute Auto 0 /uL (0-100); Basophils Percent Auto 0.2 % (0-2); Eosinophils Absolute Auto 0 /uL (0-450); Eosinophils Percent Auto 0.3 % (2-4); Hematocrit 35.8 % (41-53); Lymphocytes Absolute Auto 200 /uL (1100-4500); Lymphocytes Percent Auto 2.4 % (25-40); Mean Corpuscular HGB Conc 33.4 % (30-36); Mean Corpuscular Hemoglobin 29.7 PG (26-34); Monocytes Absolute Auto 400 /uL (0-900); Monocytes Percent Auto 4.5 % (3-14); Neutrophils Absolute Auto 7600 /uL (1500-7000); Neutrophils Percent Auto 92.6 % (50-75); Platelet Count 217 X10^3/uL (150-400); Red Blood Cell Count 4.02 X10^6/uL (4.5-5.9); Red Cell Distribution Width 13.9 % (11.6-14.8); White Blood Cell Count 8.2 X10^3/uL (4.5-11.0)
[2022-09-05] MEDS: ASPIRIN EC 81 MG TABLET PO (09:20)
[2022-09-05] MEDS: TAMSULOSIN 0.4 MG CAPSULE PO (09:20)
[2022-09-05] MEDS: HEPARIN 5,000 UNIT/ML VIAL 5000 UNIT SUBCUT ×2 (09:20→20:54)
[2022-09-05] MEDS: HYDROMORPHONE 0.5 MG INJ IV (09:29)
[2022-09-05] MEDS: CALCITONIN,SALMON 400 UNITS/2 ML MDV 200 UNITS IM ×2 (09:45→20:54)
--- NOTE | 2022-09-05 10:48 | PT.IIE ---
Current Diagnoses Hypercalcemia (09/03/22) Surgical History (Last Reviewed 09/03/22 @ 23:01 by Teofilo Vazquez MD) H/O nasal polypectomy H/O: vasectomy History of ankle surgery History of hernia surgery History of lumbar surgery S/P lumbar spinal fusion Medical History (Last Reviewed 09/03/22 @ 23:01 by Teofilo Vazquez MD) COPD (chronic obstructive pulmonary disease) Lumbar foraminal stenosis Lumbar stenosis with neurogenic claudication Tobacco abuse Physical Therapy Inpatient Evaluation/Re-Eval M1 PT/OT-IP Prior Functional Status Start: 09/05/22 08:29 Freq: NEEDED Status: Active Protocol: Document 09/05/22 10:48 AW (Rec: 09/05/22 11:12 AW [id number]) Medical Review Prior Functional Status Medical History Reviewed Yes Communication Pt is able to make his needs known Mobility and Gait Pt was independently ambulatory until the last few days. He has needed to use a cane due to weakness and fatigue. Activities of Daily Living and IADL's Independent. Pt drives. He provides care for his spouse who had a stroke and uses a HW . Pt's spouse has a twice weekly caregiver who assists her with bathing, cleaning, and occasional meal prep. Social History Household Members spouse,none Living Arrangements House Number of Floors (Floors) One Floor Number of Stairs To Enter/Railing? Ramped entry Home Environment High Toilet,Tub/Shower Home Equipment Straight Cane,Tub Transfer Bench,Grab Bars Near Toilet, Grab Bars In Shower Employment Status Retired Additional Social History Comment Pt's son, Trever, lives nearby and is helping with pt's spouse while pt is hospitalized. M2 PT-IP Current Condition Start: 09/05/22 08:29 Freq: NEEDED Status: Active Protocol: Document 09/05/22 10:48 AW (Rec: 09/05/22 11:12 AW [id number]) Physical Therapy Current Condition Current Condition Evaluation Date 09/05/22 Treatment Diagnosis hypercalcemia, MONO, R hydronephrosis, impaired mobility Onset Date 09/03/22 M3 PT-IP Subjective Start: 09/05/22 08:29 Freq: NEEDED Status: Active Protocol: Document 09/05/22 10:48 AW (Rec: 09/05/22 11:12 AW [id number]) Subjective Physical Therapy Visit Type Type Initial Evaluation Visit Start Time 10:20 Visit Stop Time 10:48 Total Visit Minutes 28 Physical Therapy Visit Comments Patient Comments Pt presents with flat affect initially but becomes more engaged during mobility. Patient Goals Pt would like to get out of bed today. M4 PT-IP Mobility and Gait Start: 09/05/22 08:29 Freq: NEEDED Status: Active Protocol: Document 09/05/22 10:48 AW (Rec: 09/05/22 11:24 AW [id number]) PT-Bed Mobility Assessment Supine to Sit Supine to Sit Standby Assistance Scooting Scooting to Edge of Bed Independent PT-Transfer Assessment Sit to and From Stand Sit to and from Stand Contact Guard Assistance Equipment Transfer Assistive Device Front Wheeled Walker Orthotic/Prosthetic Devices or Brace: No Transfers Transfer Destination Chair Transfer Technique Stand Step Pivot Transfer Ability Level of Assist Minimal Assistance Comments Mobility Comments Pt was found resting in bed and agreeable to PT assessment . VS were BP 160/80 HR 61 SpO2 96% on 2L/min via NC. Pt uses 2 L/min at home. With extra time and SBA, pt was able to transition to sitting EOB when HOB was ~20 degrees elevated. Pt states he sleeps in an adjustable bed at home. Pt scooted forward and sat several minutes, reporting his energy was low and he needed time to gather himself. He stood with CGA as PT cued for hand placement and push off from the bed. He used FWW to transfer to the chair set up at bedside and was too fatigued to progress to ambulation. Pt was left in the chair with call light handy. Gait Assessment Comments Gait Comments Steps taken during transfer only. Pt has strong retro lean in standing, requiring cues and assist for anterior weight shift. He also tended to keep the walker too far forward, needing cues to maintain proximity for improved stability. Stair Climbing Assessment Comments Stair Climbing Comments Not assessed. Pt has ramped entry at home. PT-Balance Assessment Sitting Balance and Reactions Static Sitting Balance Ability Good Dynamic Sitting Balance Ability Fair Standing Balance and Reactions Static Standing Balance Ability Fair Dynamic Standing Balance Ability Fair Device Used FWW M5 PT-IP Objective Assessments Start: 09/05/22 08:29 Freq: NEEDED Status: Active Protocol: Document 09/05/22 10:48 AW (Rec: 09/05/22 11:24 AW [id number]) Orientation Orientation/Cognition Level of Alertness Lethargic Orientation Name,Day of Week,Place, Situation Safety Awareness Understands Safety Issues Memory Description No Deficits Noted Gross Range of Motion Upper Extremity ROM Assessment Within Functional Limits Lower Extremity ROM Assessment Within Functional Limits Strength Lower Extremity Strength Hip flexion 4-/5 Knee ext 4+/5; flex 4+/5 Ankle DF 4/5 Sensation Assessment Sensation Gross Sensation WNL M6 PT-IP Treatment Start: 09/05/22 08:29 Freq: NEEDED Status: Active Protocol: Document 09/05/22 10:48 AW (Rec: 09/05/22 12:04 AW [id number]) Physical Therapy Treatment Education Education Provided Safety Other Treatments Other Treatment Performed Educated pt on benefits of continued mobility as well as energy conservation techniques to improve safety. M7 PT-IP Assessment and Plan Start: 09/05/22 08:29 Freq: NEEDED Status: Active Protocol: Document 09/05/22 10:48 AW (Rec: 09/05/22 12:04 AW [id number]) PT Summary Assessment and Plan Potential Rehabilitation Potential Good Status of Condition at Evaluation Evolving Summary Impairments Pain,Strength,Balance,Bed Mobility,Transfers,Gait, Activity Tolerance Assessment Summary Trever is a 72 yo man admitted with MONO, right hydronephrosis , and hypercalcemia. PMH includes COPD (O2 dependent), chronic back pain s/p lumbar fusion, and malnutrition with BMI 17.4. At baseline, he is independent and provides assist to his who has stroke-related deficits. He and his live in a single level home with ramped entry. They have supportive family in the area. CLOF: Pt presents with BLE weakness, impaired balance, and significantly poor activity tolerance which are affecting his functional mobilty. He is requiring up to min assist for transfers with FWW and is unable to tolerate more activity. He would not be able to safely manage in the home environment and PT would recommend SNF rehab if pt were discharging today. Pt is hopeful that he will be able to progress toward home discharge. PT will continue to assess. Goals Bed Mobility Goal Independent Transfer Goal Independent,Front Wheeled Walker Gait Goal Independent,Front Wheel Walker Gait Distance 150 Other Goals - Pt will progress transfers and gait to modified independent with LRAD or independent without AD Days to Meet Goals 8 Frequency of Treatment Frequency Of Treatment Once a Day Treatment Plan Physical Therapy Treatment Plan Bed Mobility Training,Transfer Training,Gait Training, Therapeutic Exercise,Balance Retraining,Discharge Planning, Hot or Cold Pack,Neuromuscular Re-ed Other Recommendations and Next Treatment transfer training, static Focus balance, standing tolerance, gait with FWW as tolerated Precautions Other Precautions falls risk Recommendations To Nursing Amount of Assist Needed 1 Person Assist Discharge Recommendations PT Discharge Recommendations SNF Rehab Other Discharge Recommendations pending progress with therapy Transportation Needs at Discharge Private Vehicle,Wheelchair/ Cabulance
--- NOTE | 2022-09-05 11:50 | OT.IP.EVAL ---
Current Diagnoses Hypercalcemia (09/03/22) Past Medical History (Last Reviewed 09/03/22 @ 23:01 by Teofilo Vazquez MD) COPD (chronic obstructive pulmonary disease) Lumbar foraminal stenosis Lumbar stenosis with neurogenic claudication Tobacco abuse Surgical History (Last Reviewed 09/03/22 @ 23:01 by Teofilo Vazquez MD) H/O nasal polypectomy H/O: vasectomy History of ankle surgery History of hernia surgery History of lumbar surgery S/P lumbar spinal fusion Occupational Therapy Inpatient Evaluation/Re-Eval M1 PT/OT-IP Prior Functional Status Start: 09/05/22 08:29 Freq: NEEDED Status: Active Protocol: Document 09/05/22 13:22 CGR (Rec: 09/05/22 13:37 CGR [id number]) Medical Review Prior Functional Status Medical History Reviewed Yes Communication Pt is able to make his needs known Mobility and Gait Pt was independently ambulatory until the last few days. He has needed to use a cane due to weakness and fatigue. Activities of Daily Living and IADL's Independent. Pt drives. He provides care for his spouse who had a stroke and uses a HW . Pt's spouse has a twice weekly caregiver who assists her with bathing, cleaning, and occasional meal prep. Social History Household Members spouse,none Living Arrangements House Number of Floors (Floors) One Floor Number of Stairs To Enter/Railing? Ramped entry Home Environment High Toilet,Tub/Shower Home Equipment Straight Cane,Tub Transfer Bench,Grab Bars Near Toilet, Grab Bars In Shower Employment Status Retired Additional Social History Comment Pt's son, Trever, lives nearby and is helping with pt's spouse while pt is hospitalized. M2 OT-IP Current Condition Start: 09/05/22 13:21 Freq: Status: Active Protocol: Document 09/05/22 13:22 CGR (Rec: 09/05/22 13:37 CGR [id number]) Occupational Therapy Current Condition Current Condition Evaluation Date 09/05/22 Treatment Diagnosis weakness, hypercalcemia, possible mets Diagnosis Onset Date 09/03/22 M3 OT- IP Subjective and Pain Start: 09/05/22 13:21 Freq: Status: Active Protocol: Document 09/05/22 13:22 CGR (Rec: 09/05/22 13:37 CGR [id number]) OT- Subjective Occupational Therapy Visit Type Type Initial Evaluation Visit Start Time 11:33 Visit Stop Time 11:50 Total Visit Minutes 17 OT Pain Assessment Pain Present Pain Present Pain Reported Location Generalized Intensity 3 Scale Used Numeric (0 - 10) Description Aching Management Techniques Distraction,Modification of Treatment,Re-positioning Left Neck Intensity 8 Scale Used Numeric (0 - 10) Management Techniques Modification of Treatment,Re- positioning M4 OT- IP ADL's Start: 09/05/22 13:21 Freq: Status: Active Protocol: Document 09/05/22 13:22 CGR (Rec: 09/05/22 13:37 [facility] [id number]) OT [id number] Comments OT Self-Feeding Comments not meal time OT ADL-Grooming Comments OT Grooming Comments Pt declined to perform OT ADL-Oral Care Comments Oral Care Comments Pt declined to perform OT ADL-Dressing Comments OT Dressing Comments not performed OT ADL-Toileting General Evaluation Toileting Ability Total Assistance Comments OT Toileting Comments ash OT ADL-Bathing Comments OT Bathing Comments pt declined M5 OT- IP IADL's Start: 09/05/22 13:21 Freq: Status: Active Protocol: Document 09/05/22 13:22 CGR (Rec: 09/05/22 13:37 [facility] [id number]) OT-Instrumental Activities of Daily Living Deficits IADL Deficits Identified Deficits Home Safety Awareness Awareness of Need for Assistance at Home Good Awareness Ability to Problem Solve Emergency Able to Problem Solve Situations Medication Management Medication Management Comments Pt was responsible for this task for him and his as her caregiver. Money Management Money Management Comments Pt was responsible for this task for him and his as her caregiver. Meal Preparation Meal Preparation Comments Pt was responsible for this task for him and his as her caregiver. 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 OT- IP Functional Cognition Start: 09/05/22 13:21 Freq: Status: Active Protocol: Document 09/05/22 13:22 CGR (Rec: 09/05/22 13:37 [facility] [id number]) Cognitive Factors Limiting Selfcare Function Cognitive Ability Level of Alertness Alert Patient Orientation Name,Age,Birthday,Month,Date, Year,Day of Week,Place, Situation Attention Span Ability Capable of Focused Attention, Capable of Sustained Attention Ability to Follow Commands Able to Follow One Step Commands with Increased Time, Able to Follow One Step Commands with Repetition Cognitive Comments Cognitive Assessment Comments Pt appears to be cognitively intact but very tired. Pt appears to fall asleep twice during session. OT- Vision and Hearing OT- Hearing Assessment OT- Hearing Assessment WFL OT- Vision Assessment Visual Acuity Glasses All The Time Visual Attentiveness WFL Occular Pursuits WFL Visual Convergence WFL Vision Assessment Comments Pt wears bifocals M7 OT- IP Mobility and Balance Start: 09/05/22 13:21 Freq: Status: Active Protocol: Document 09/05/22 13:22 CGR (Rec: 09/05/22 13:37 CGR [id number]) OT-Transfer Assessment Sit to and From Stand Sit to and from Stand Contact Guard Assistance Technique Transfer Destination Chair Transfer Technique Stand Step Pivot Devices Transfer Assistive Devices Gait Belt,Front Wheeled Walker Comments Mobility Comments Pt stood from chair for sit to stand and took ~[address] before returning to sitting. OT- Balance Assessment Sitting Balance and Reactions Static Sitting Balance Ability Good Dynamic Sitting Balance Ability Good M8 OT- IP Objective Assessments Start: 09/05/22 13:21 Freq: Status: Active Protocol: Document 09/05/22 13:22 CGR (Rec: 09/05/22 13:37 CGR [id number]) OT Gross Range of Motion Upper Extremity Range of Motion Assessment Within Functional Limits OT Strength Upper Extremity Strength Assessment Within Functional Limits Comments Strength Comments 4/5 OT- Coordination Assessment Upper Extremity Finger to Nose Test Within Functional Limits Finger Tapping Test Within Functional Limits OT-Muscle Tone Assessment Muscle Tone WNL Yes OT Sensation Assessment Edema Edema Absent M9 OT- IP Assessment and Plan Start: 09/05/22 13:21 Freq: Status: Active Protocol: Document 09/05/22 13:22 CGR (Rec: 09/05/22 13:37 CGR [id number]) OT Summary Assessment and Plan Potential Rehabilitation Potential Fair Analytic Complexity at Evaluation Moderate Summary OT Impairments Pain,Balance,Functional Mobility,Grooming,Dressing, Toileting,Bathing,Toilet Transfers,Shower Transfers, Activity Tolerance Progress Towards Goals Slow Progress due to Activity Tolerance Assessment Summary Pt presents as a moderate complexity evaluation s/p admit for weakness and found to have hypercalcemia and possible mets. Pt is fatigued at eval and declines most activity stating that he is exhausted. Pt is able to stand with CGA and take steps in place. Pt will benefit from continued OT services. Recommend d/c home with family support and increased caregiver assist in the home. Goals Grooming Goal Independent Dressing Goal Independent Toileting Goal Independent Bathing Goal Independent Toilet Transfer Goal Independent Shower Transfer Goal Independent Days to Meet Goals 10 Frequency of Treatment Frequency Of Treatment Once a Day Treatment Plan OT Treatment Plan ADL Training,Functional Mobility,Patient/Family Education,Discharge Planning Other Treatment Recommendations and Next endurace activities, educated Treatment Focus on energy conservation Discharge Recommendations OT Discharge Recommendations Home with Assistance Transportation Needs at Discharge Private Vehicle
--- NOTE | 2022-09-05 15:49 | PM.PN.1 ---
Subjective Subjective Interval history: 72 M admitted with weakness, hypercalcemia, probable multiple myeloma. He remains very weak today. Renal function has been relatively stable but not much improvement. Ultrasound showed mild unilateral hydronephrosis without any stone. He continues to feel extremely weak. He denies chest pain, palpitations, fever. Exam Vital Signs (past 8 hours): - 09/05/22 08:00 09/05/22 09:00 09/05/22 12:58 Temperature 98.3 F 97.6 F Pulse Rate 79 58 L Respiratory Rate 24 19 Blood Pressure 166/85 H 167/77 H Pulse Oximetry 97 97 99 Oxygen Delivery Method Nasal Cannula Oxygen Flow Rate 2 2 2 09/05/22 14:57 Temperature 97.7 F Pulse Rate 68 Respiratory Rate 24 Blood Pressure 146/79 H Pulse Oximetry 96 Oxygen Delivery Method Oxygen Flow Rate 2 Oxygen Delivery Method Nasal Cannula Oxygen Flow Rate 2 Narrative Exam Narrative: GEN: no acute distress, chronically ill appearing, near cachectic appearing. HEENT: moist mucous membranes, PERRL SKIN: fleshy mass on back of head CV: regular rate and rhythm, no murmurs PULM: clear bilaterally, no wheezes, rhonchi, rales ABD: soft, nontender, nondistended, no organomegaly, normal bowel sounds EXT: warm and well perfused with no edema NEURO: awake, alert but falls asleep easily, oriented, normal upper and lower extremity strength bilaterally Objective Labs 09/05/22 05:25 09/05/22 05:25 Labs: Laboratory Results - last 24 hr 09/05/22 09/05/22 05:25 05:25 WBC 8.2 RBC 4.02 L Hgb 12.0 L Hct 35.8 L MCV 89.0 MCH 29.7 MCHC 33.4 RDW 13.9 Plt Count 217 Neut % (Auto) 92.6 H Lymph % (Auto) 2.4 L [place] % (Auto) 4.5 Eos % (Auto) 0.3 L Baso % (Auto) 0.2 Neut # (Auto) 7600 H Lymph # (Auto) 200 L [place] # (Auto) 400 Eos # (Auto) 0 Baso # (Auto) 0 Sodium 131 L Potassium 4.0 Chloride 98 Carbon Dioxide 30 BUN 31 H Creatinine 1.82 H Estimated GFR 38 L BUN/Creatinine Ratio 17.0 Glucose 96 Calcium 11.2 H [facility] Medical History COPD (chronic obstructive pulmonary disease) Lumbar foraminal stenosis Lumbar stenosis with neurogenic claudication Tobacco abuse Surgical History H/O nasal polypectomy H/O: vasectomy History of ankle surgery History of hernia surgery History of lumbar surgery S/P lumbar spinal fusion Social History household members: spouse and none Smoking Status: Current every day smoker alcohol intake: current Assessment & Plan Assessment & Plan narrative: 1. Severe symptomatic hypercalcemia -suspect malignancy as most likely etiology, diffuse bone lucencies c/w MM -PTH pending -weakness, dec appetite, weight loss all attributable to hypercalcemia -rec'd Zometa 09/03 -continued IV fluids until today, will complete calcitonin x4 doses, calcium improved to 11.2 today from 15.5. -spep, immunoelectrophoresis, light chains pending -PT/OT evaluation 2. MONO -suspect possibly secondary to MM, dehydration from hypercalcemia -cont fluids -renal US 3. Weakness, facial droop -likely hypercalcemia related vs CVA -unclear time course, but clearly did not start within 24 hours -CT head negative for acute process, CTA head/neck showed 50% R ICA stenosis -MRI neg for CVA -for now treat as possible CVA with asa and statin -tele to continue for hypercalcemia. -echo performed? but no final read -PT/OT, speech eval -d/c'd neuro checks 4. Bone lucencies -have high concern for possible multiple myeloma with hypercalcemia, mono, and anemia also noted -if not myeloma, concern would be another type of malignancy -spep with fixation, quantitave immunoglobins, light chains -ultrasound with mild unilateral hydronephrosis without visible stones. -will need oncology referral at time of discharge 5. COPD, active smoker, chronic respiratory failure -encourage cessation -ordered low dose nicotine patch -ordere prn nebs -continue oxygen 6. Acute cystitis -continue ceftriaxone, culture with [facility], follow up final cultures. 7. Skin growth, back of neck -concern for possible plasmacytoma vs other malignant etiology -may need outpatient biopsy Dispo: remains inpatient, suspect need for SNF given appearance but will see how he does with PT and OT.
--- NOTE | 2022-09-05 17:06 | DIET.CONS ---
Dietary Consultation Note Admission Date: 09/03/2022 20:26 Assessment: 72y M admitted with SOB, depressed appetite found to have hypercalcemia (Calcium 15.5 H) referred to nutrition for low BMI. Hospitalist describes pt as cachectic and ill appearing. BMI 17.4 (severe). Pt consuming 0-25% POs on Monday, pt reports poor appetite and weight loss prior to admission. Pt primary caregiver for spouse. Imaging showing bone lucencies concerning for multiple myeloma. Pt with persistently elevated creatinine at 1.8-1.9 range. Ht: 175.26 cm Wt: 53.524 kg BMI: 17.4 UBW: 56kg (03/30) Last BM: 08/31/22 (09/03/22 21:43) MNA: 11 David Score: 13 Diet: 09/03/22 Breakfast Heart Healthy Diet Diet Modifications: Nutrition Percent Meal Consumed 0% 09/04/22 18:12 Percent Meal Consumed 25% 09/04/22 13:48 Labs: RBC 4.02 X10^6/uL (4.5-5.9) L 09/05/22 05:25 Hgb 12.0 g/dL (13.5-17.5) L 09/05/22 05:25 Hct 35.8 % (41-53) L 09/05/22 05:25 Creatinine 1.82 mg/dL (0.66-1.25) H 09/05/22 05:25 Nutrition Diagnosis: Severe Acute on Chronic Protein Calorie Malnutrition r/t poor appetite aeb BMI 17.4 (severe), pt with ongoing weight loss and depressed appetite for weeks to months, pt admitted with MONO and hypercalcemia (15.5), POs 0-25% this hospitalization. Interventions: 1. Sending pt ONS tid on meal trays to support nutrition status. 2. Recc increased help in the home for pts so pt can focus on his own healing. Meal shopping and prep would benefit pt. Monitoring/Evaluations: ONS tolerance, POs Electronically Signed by: Lovely Lowery 09/05/22 17:06 Clinical Dietitian [address] [id number]
--- NOTE | 2022-09-05 17:29 | ST.IPCSEOM ---
Visit Care Team Role Provider Type Inge Diaz MD Primary Care Provider Non-Staff Specialty: Medical Address: [address] [place] [address], [id number] Email: Cherri David MD Emergency Provider Physician Referring Provider Specialty: Emergency Medicine Address: [address] [place] [address], [id number] Email: Teofilo Vazquez MD Admit Provider Physician Attending Provider Specialty: Hospitalist Address: [address] [place] [address], [id number] Fax: Email: [email or web address] Current Diagnoses Hypercalcemia (09/03/22) Past Medical History (Last Reviewed 09/03/22 @ 23:01 by Teofilo Vazquez MD) COPD (chronic obstructive pulmonary disease) (Medical) Lumbar foraminal stenosis (Medical) Lumbar stenosis with neurogenic claudication (Medical) Tobacco abuse (Medical) Speech-Language Pathology Swallow Evaluation [employer] OPER[employer] Clinical Instructor Line Start: 09/05/22 15:38 Freq: Status: Active Protocol: Document 09/05/22 15:38 BE (Rec: 09/05/22 15:57 BE [id number]) Clinical Instructor Signature Clinical Instructor Clinical Instructor Yes SOYFREEZE OPERATOR Clinical Swallow Evaluation Start: 09/05/22 15:38 Freq: Status: Active Protocol: Document 09/05/22 15:38 BE (Rec: 09/05/22 15:57 BE [id number]) Clinical Swallow Evaluation Session Time Visit Start Time 12:49 Visit Stop Time 01:11 Total Visit Minutes 22 Setting Assessment Location Acute Care Visit Type Note Type Initial evaluation Next Note Type Next Note Type Treatment Note Patient Information Identification Type Name,Wristband History Per hospitalist, Mr. Mcleroy is a 72M with PMH COPD on home O2, active smoker, BPH who comes in to the hospital with multiple concerns, but primarily for weakness. [place]. He had a couple of falls where his legs felt like jello. He has felt dizziness. He has had chronically a poor appetite and has also been losing weight. He went to another hospital a few weeks ago for similar symptoms. He notes he has chronic shortness of breath, and chronic cough. No fevers/chills. He notes he has had progressively worsening back boo for a few weeks at least. He has had some right sided flank pain. He was noted to have a facial droop in the ED and it was not new from today, but unclear the chronicity. Speech team referral due to possible CVA to assess swallow. Subjective Observations Patient was sleeping upright in chair when culled fruit packer entered the room. Pt was oriented after five minutes. He declined lunch due to food selection. Pt agreed to participate in swallow evaluation. Trever stated difficulty with swallowing liquids. Reported by Patient Other Symptoms Coughing,Difficulty swallowing liquids Current Diet Regular,Thin liquids Baseline Feeding Method Independent in self-feeding Objective Assessment Mental Status Alert,Responsive,Cooperative Oral Integrity WFL Dentition Missing teeth Lip Function Mild impairment Observation of Lips at Rest Symmetrical Pucker Within normal limits Lip Retraction Within normal limits Alternating Pucker/Lip Retraction Incoordination Tongue Function Within normal limits Observations of Tongue at Rest Within normal limits Tongue Protrusion Within normal limits Tongue Retraction Within normal limits Tongue Lateralization Within normal limits Jaw Function Mild impairment Observations of Jaw at Rest Within normal limits Jaw Opening Within normal limits Jaw Closing Within normal limits Jaw Lateralization Incoordination Jaw Protrusion Within normal limits Jaw Retraction Within normal limits Hard/Soft Palate Function Within normal limits Observations of Hard/Soft Palate Within normal limits Nasality Within normal limits Phonation Within normal limits Respiratory Sufficiency Within normal limits Comment Pt demonstrated imprecision and incoordination between articulators during sequencing movements, and showed difficulty isolating movements with direction (e.g., only move tongue, not jaw). These impairments could be the cause of increased oral residue during PO trial. Pt demonstrated a weakened lip seal, though did not lose any food or liquid during PO trials. Tongue and jaw strength within normal limits. Food and Liquid Trials Position During Assessment Upright (90 degrees) Liquids Trialed Ice chips,Thin,Pudding Solids Trialed Puree,Dysphagia Mechanical, Regular Administration Type Tea spoon,Cup single sip,Cup consecutive sips,Straw,Self- feeding Oral Impairment Moderately impaired Oral Phase Comments Mild-moderate oral phase swallow impairment. Imprecision and incoordination between articulators likely contribute to impaired bolus transport. Residue in oral cavity following swallow of bolus with spontaneous lingual and buccal tongue sweeps to clear- did not clear all residue. Missing top row of teeth impaired chewing efficiency. Pharyngeal Impairment Moderately impaired Pharyngeal Phase Comments Mild-moderate pharyngeal phase impairment, indicated by wet vocal quality and coughing following swallow of thin liquids through straw. With reduction of straw and sip size, vocal quality cleared and coughing was minimal but still present. Use of a cup ( without straw) eliminated wet vocal quality and cough following swallow of thin liquids. Pt had no difficulty with pudding. Could not eliminate presence of silent aspiration with clinical swallow evaluation. Comment Could not assess due to minimal trials presented. Findings Swallowing Function Oropharyngeal phase dysphagia Severity of Swallow Impairment Mildly-moderately impaired Contributing Factors to Swallow Difficulty following Impairment directions,Reduced oral strength/coordination/ sensation,Mastication inefficiency,Impaired oral- pharyngeal transport,Impaired airway protection,Excessive oral residue Comment Pt presented with mildy- moderately impaired oropharyngeal phase dyshpagia characterized by reduced oral strength and coordination, mastication inefficiency, impaired oral-pharyngeal transport, impaired airway protection, and excessive oral residue. Could not assess pharyngeal structures with clinical swallow assessment to inform exact impairment. Recommend diet change to dysphagia advanced and thin liquids using cup or small straw. Recommend sitting upright during all oral intake , small bites/sips. Recommend speech therapy to monitor diet tolerance, and monitor cognitive skills with possible screen. Impact on Safety and Functioning Risk for aspiration,Risk for inadequate nutrition/hydration Recommendations Instrumental Assessment No Swallowing Treatment Yes Frequency 1x day Recommended Solids Dysphagia Advanced Recommended Liquids Thin Safety Precautions/Swallowing Feed only when alert,Reduce Recommendations distractions,Remain upright ( 90 degrees) during all oral intake,Small bites and sips when eating,Slow rate; swallow between bites Medication Recommendations As Tolerated Discharge Recommendations Home Education Patient/Caregiver Education Described results of evaluation,Patient expressed understanding of evaluation, Patient expressed agreement with goals & treatment plans, Patient expressed understanding of safety precautions,Patient expressed understanding of feeding recommendations,Patient requires further education/ training Goals Short-term Goals 1. Pt will tolerate least restrictive diet to meet nutrition and hydration needs.
[2022-09-05] MEDS: ONDANSETRON 4 MG/2 ML INJ IV (20:54)
[2022-09-05] MEDS: ATORVASTATIN 20 MG TABLET 80 MG PO (20:55)
[2022-09-05] MEDS: cefTRIAXone 1,000 MG in SODIUM CHLORIDE 0.9% 100 ML 200 MG IV (22:59)
[2022-09-06] VITALS (8 sets, daily range): BP systolic 143–159; BP diastolic 68–89; PULSE 64–74; RESP 14–18; TEMP 36.4–36.9; O2SAT 1–96
[2022-09-06 00:41] LABS: IGA 279 mg/dL (61-437); IGG 934 mg/dL (603-1613); IGM 74 mg/dL (15-143)
[2022-09-06] MEDS: HYDROMORPHONE 0.5 MG INJ IV (01:15)
[2022-09-06 06:32] LABS: Add Manual Diff / Slide Review NO; Basophils Absolute Auto 0 /uL (0-100); Basophils Percent Auto 0.2 % (0-2); Eosinophils Absolute Auto 0 /uL (0-450); Eosinophils Percent Auto 0.5 % (2-4); Hematocrit 33.5 % (41-53); Hemoglobin 11.5 g/dL (13.5-17.5); Lymphocytes Absolute Auto 400 /uL (1100-4500); Lymphocytes Percent Auto 4.5 % (25-40); Mean Corpuscular HGB Conc 34.4 % (30-36); Mean Corpuscular Hemoglobin 30.4 PG (26-34); Mean Corpuscular Volume 88.4 fL (80-100); Monocytes Absolute Auto 700 /uL (0-900); Monocytes Percent Auto 7.7 % (3-14); Neutrophils Absolute Auto 8100 /uL (1500-7000); Neutrophils Percent Auto 87.1 % (50-75); Platelet Count 217 X10^3/uL (150-400); Red Blood Cell Count 3.79 X10^6/uL (4.5-5.9); Red Cell Distribution Width 13.7 % (11.6-14.8); White Blood Cell Count 9.2 X10^3/uL (4.5-11.0)
[2022-09-06 06:38] LABS: Blood Urea Nitrogen 34 mg/dL (9-20); Calcium 10.2 mg/dL (8.4-10.2); Carbon Dioxide 30 mmol/L (22-32); Chloride 100 mmol/L (98-107); Estimated Glomerular Filt Rate 42 mL/min (>60); Glucose 95 mg/dL (80-110); HEMOLYSIS < 15 (0-50); Magnesium 1.6 mg/dL (1.6-2.3); Potassium 3.6 mmol/L (3.4-5.1); Sodium 132 mmol/L (137-145)
--- NOTE | 2022-09-06 08:12 | PT.IPTN ---
Current Diagnoses Hypercalcemia (09/03/22) Physical Therapy Treatment Note M2 PT-IP Current Condition Start: 09/05/22 08:29 Freq: NEEDED Status: Active Protocol: Document 09/06/22 07:54 SP (Rec: 09/06/22 11:42 SP [id number]) Physical Therapy Current Condition Current Condition Evaluation Date 09/05/22 Treatment Diagnosis hypercalcemia, MONO, R hydronephrosis, impaired mobility Onset Date 09/03/22 M3 PT-IP Subjective Start: 09/05/22 08:29 Freq: NEEDED Status: Active Protocol: Document 09/06/22 07:54 SP (Rec: 09/06/22 11:42 SP [id number]) Subjective Physical Therapy Visit Type Type Treatment Note Visit Start Time 07:54 Visit Stop Time 08:12 Total Visit Minutes 18 Notes Vitals taken: Supine: BP LE automated 147/69 , HR 64 SaO2 96% on 1 L With mobility: SaO2 maintained 91% on 1L demonstrates effort breath and require multiple rests for breath recovery. Number of CONTROLLED ATMOSPHERIC FURNACE BRAZER Visits 1 Physical Therapy Visit Comments Patient Comments Pt presents with flat affect initially but becomes more engaged during mobility. Patient Goals Will to walk more with FWW support. Pt agreeable end tx going to SNF to get stronge before going home. M4 PT-IP Mobility and Gait Start: 09/05/22 08:29 Freq: NEEDED Status: Active Protocol: Document 09/06/22 07:54 SP (Rec: 09/06/22 11:42 SP [id number]) PT-Bed Mobility Assessment Supine to Sit Supine to Sit Standby Assistance Scooting Scooting to Edge of Bed Standby Assistance PT-Transfer Assessment Sit to and From Stand Sit to and from Stand Contact Guard Assistance, Minimal Assistance,1 Person Assistance,Use of Upper Extremities Equipment Transfer Assistive Device Gait Belt,Front Wheeled Walker Orthotic/Prosthetic Devices or Brace: No Transfers Transfer Destination Chair Transfer Technique Stand Step Pivot Transfer Ability Level of Assist Minimal Assistance Comments Mobility Comments Pt increased effort BUE WB on bed completing elevated supine >sit, scoot to EOB brief stop recovery breath during pelvic advancement. Cues for pushing from bed to stand and wt shift forward (redirect pulling from FWW) CG- Min A due to retro lean trunk sways. SPT w/ FWW bed>chair cues increase foot clearance due to small base shuffle stepping, Min A due to retro lean, CONTROLLED ATMOSPHERIC FURNACE BRAZER managed O2 line. Safety cues full back step and reach back slow descent Min A. Pt required 1 min seated rest due to increased breath rate effort. STS cued scoot forward and push from chair, gait across room to door and back to chair w/ FWW CG/ Min A due to trunk sways. Pt returned to chair. Instructed static stand front chair WBOS unsupported head turns LOB retro min A recovery . Stand>sit Min A. Pt was inchair with all needs in reach before left. CONTROLLED ATMOSPHERIC FURNACE BRAZER updated communication board, discussed with BUILDING SERVICES TECHNICIAN and CM requiring assist not at baseline Min recommending SNF. Gait Assessment Gait Gait Assistance Required: Contact Guard Assist,Minimum Assistance,1 Person Assist Distance (Feet) 30 Assistive Devices Assistive Device Gait Belt,Front Wheeled Walker Gait Deviations General Gait Pattern Antalgic,Decreased Stride Length,Decreased Feet Clearance,Lateral Trunk Lean, Step-to Gait,Wide Based Gait Factors Limiting Gait Function Factors Limiting Gait Function Decreased Activity Tolerance, Decreased Strength,Difficulty Following Directions,Poor Balance,Poor Safety Awareness, Respiratory Distress Comments Gait Comments Cued for proximity to FWW, keeping LEs inside FWW during turns, increase stride and foot clearance. Min A at times for FWW safety pivot turning due to quick lateral and tipped by pt. Stair Climbing Assessment Comments Stair Climbing Comments Not assessed. Pt has ramped entry at home. PT-Balance Assessment Sitting Balance and Reactions Static Sitting Balance Ability Good Dynamic Sitting Balance Ability Good Standing Balance and Reactions Static Standing Balance Ability Fair Dynamic Standing Balance Ability Poor Device Used FWW Comments Other Balance Tests/Deviations/Treatment see mobility details: static : WBOS HTs LOB retro. M5 PT-IP Objective Assessments Start: 09/05/22 08:29 Freq: NEEDED Status: Active Protocol: Document 09/05/22 10:48 AW (Rec: 09/05/22 11:24 AW [id number]) Orientation Orientation/Cognition Level of Alertness Lethargic Orientation Name,Day of Week,Place, Situation Safety Awareness Understands Safety Issues Memory Description No Deficits Noted Gross Range of Motion Upper Extremity ROM Assessment Within Functional Limits Lower Extremity ROM Assessment Within Functional Limits Strength Lower Extremity Strength Hip flexion 4-/5 Knee ext 4+/5; flex 4+/5 Ankle DF 4/5 Sensation Assessment Sensation Gross Sensation WNL M6 PT-IP Treatment Start: 05/01/23 08:29 Freq: NEEDED Status: Active Protocol: Document 09/06/22 07:54 SP (Rec: 09/06/22 11:42 SP [id number]) Physical Therapy Treatment Education Education Provided Safety Other Treatments Other Treatment Performed Educated pt on benefits of continued mobility as well as energy conservation techniques breath, posturing fwd over CARINE to improve safety. M7 PT-IP Assessment and Plan Start: 09/05/22 08:29 Freq: NEEDED Status: Active Protocol: Document 09/06/22 07:54 SP (Rec: 09/06/22 11:42 SP [id number]) PT Summary Assessment and Plan Potential Rehabilitation Potential Good Status of Condition at Evaluation Evolving Summary Impairments Pain,Strength,Balance,Bed Mobility,Transfers,Gait, Activity Tolerance Progress Towards Goals Slow Progress due to Activity Tolerance Assessment Summary Pt requiring increased support CG/ Min A during transfers, gait w/ FWW, retro leans and 1 LOB with assist recover and effort breath during mobility. Pt will require SNF to progress strength. Will continue to assess progress. Goals Bed Mobility Goal Independent Transfer Goal Independent,Front Wheeled Walker Gait Goal Independent,Front Wheel Walker Gait Distance 150 Other Goals - Pt will progress transfers and gait to modified independent with LRAD or independent without AD Days to Meet Goals 8 Frequency of Treatment Frequency Of Treatment Once a Day Treatment Plan Physical Therapy Treatment Plan Bed Mobility Training,Transfer Training,Gait Training, Therapeutic Exercise,Balance Retraining,Discharge Planning, Hot or Cold Pack,Neuromuscular Re-ed Other Recommendations and Next Treatment transfer training, static Focus balance, standing tolerance, gait with FWW as tolerated Precautions Other Precautions falls risk Recommendations To Nursing Amount of Assist Needed 2 Person Assist Discharge Recommendations PT Discharge Recommendations SNF Rehab Transportation Needs at Discharge Wheelchair/Cabulance
[2022-09-06] MEDS: ACETAMINOPHEN 325 MG TABLET 650 MG PO (09:41)
[2022-09-06] MEDS: HEPARIN 5,000 UNIT/ML VIAL 5000 UNIT SUBCUT (09:41)
[2022-09-06] MEDS: ASPIRIN EC 81 MG TABLET PO (09:41)
[2022-09-06] MEDS: TAMSULOSIN 0.4 MG CAPSULE PO (09:49)
[2022-09-06] MEDS: CALCITONIN,SALMON 400 UNITS/2 ML MDV 200 UNITS IM (09:49)
[2022-09-06] MEDS: DOXYCYCLINE HYCLATE 100 MG TABLET PO (09:57)
[2022-09-06] MEDS: SODIUM CHLORIDE 0.9% FLUSH 10 ML IV (09:57)
--- NOTE | 2022-09-06 10:58 | ST.IPDYTX ---
Visit Care Team Role Provider Type Inge Diaz MD Primary Care Provider Non-Staff Specialty: Medical Address: [address] [place] [address], [id number] Email: Cherri David MD Emergency Provider Physician Referring Provider Specialty: Emergency Medicine Address: [address] [place] [address], [address] Email: Teofilo Vazquez MD Admit Provider Physician Attending Provider Specialty: Hospitalist Address: [address] [place] [address], [address] Fax: Email: [email or web address]PERATIONS Dysphagia Treatment [employer] Clinical Instructor Line Start: 09/05/22 15:38 Freq: Status: Active Protocol: Document 09/05/22 15:38 BE (Rec: 09/05/22 15:57 BE [id number]) Clinical Instructor Signature Clinical Instructor Clinical Instructor Yes [employer] Dysphagia Treatment Start: 09/06/22 10:47 Freq: Status: Active Protocol: Document 09/06/22 10:47 LNK (Rec: 09/06/22 10:58 LNK [id number]) Dysphagia Treatment Session Time Visit Start Time 10:00 Visit Stop Time 10:15 Total Visit Minutes 15 Setting Assessment Location Acute Care Visit Type Note Type Treatment Note Patient Information Identification Type Name,ID Wristband Subjective Observations Pt was in bed lying at ~10 degrees elevation. Pt c/o pain when seated upright and lying down. Nursing reported that the pt refused to sit upright for any po intake secondary to pain. Treatment Solids Trialed Puree Administration Type Tea Spoon,Straw Treatment Activities Observed pt take 5 medications with applesauce and swallow 3 sips of water via large straw . Pt refused any more trials. All observed trials were swallowed without overt s/sx aspiration. No cough or choke observed. No wet voicing was observed. Pt appears to be tolerating PO intake. Will observe pt with a meal to assure safety with PO intake. Assessment Patient Response to Treatment Good Diet Recommendations Recommendations Continue Current Diet Medication Recommendations Whole in Carrier,Crushed in Carrier Additional Dietary Needs 1:1 Supervision,1:1 Assistance ,Encourage to Self-Feed Aspiration Precautions Recommended Precautions Upright at 90 Degrees Additional Precautions Encourage pt to sip upright as fare as possible to reduce aspiration risk Treatment Plan Placement Recommendation after Discharge Residential Facility,Home with Home Health Appropriate for Continued Therapy Yes: will f/u 1-2x Dysphagia Goals Pt will safely tolerate the least restrictive diet to meet hydration/nutrition needs without s/sx aspiration.
--- NOTE | 2022-09-06 11:39 | P.DS_ITS ---
History of Present Illness History of Present Illness Date Patient Seen: 09/06/22 Chief complaint: SOB, Can't eat, dizzy, L side pain, Fallx2 today Narrative: Mr. Mcelroy is a 72M with PMH COPD on home O2, active smoker, BPH who comes in to the hospital with multiple concerns, but primarily for weakness. [place]. He had a couple of falls where his legs felt like jello. He has felt dizziness. He has had chronically a poor appetite and has also been losing weight. He went to another hospital a few weeks ago for similar symptoms. He notes he has chronic shortness of breath, and chronic cough. No fevers/chills. He notes he has had progressively worsening back boo for a few weeks at least. He has had some right sided flank pain. He was noted t o have a facial droop in the ED and it was not new from today, but unclear the chronicity. In the ED workup was done, vitals notable for afebrile, heart rate in the 80s, blood pressure 180s/90s, sats 90-93% on room air. He was placed on oxygen. NIH 4. Labs reviewed by me and notable for WBC 11.6, hgb 13.4, plts 321. INR 1.0. Creatinine 1.88. Na 131, k 3.2. Ca 15.5. Albumin 3.3. Trop negative. CT head reviewed by me and negative for a cute process. CT angiogram of head and neck showed lucencies in the bone, with no acute process, but 50% R ICA stenosis. Chest xray showed bony lucencies. He was ordered for aspirin, fluids, calcitonin, and bisphosphonate. He was admitted for further treatment. Discharge Providers Provider Date of admission: 09/03/22 20:26 Discharge Date: 09/06/22 Primary care physician: Inge Diaz MD Consults: 09/03/22 21:54 Consult to Dietitian, Adult Routine Comment: Reason For Exam: malnutrition, possibly cancer Consult to Discharge Planning Routine Comment: Consult to Occupational Therapy Evaluate & Treat Comment: Physician Instructions: Evaluate and treat Consult to Physical Therapy Evaluate & Treat Comment: Physician Instructions: Evaluate and Treat Consult to Speech Therapy Evaluate & Treat Comment: Physician Instructions: Evaluate and treat Discharge provider: Giovanny Wolf DO Summary Hospital Course Discharge Diagnosis: 1. Severe symptomatic hypercalcemia 2. MONO, improved 3. Weakness, facial droop, improving 4. Bone lucencies, presumed multiple myeloma 5. COPD, active smoker, chronic respiratory failure 6. Acute cystitis 7. Skin growth, back of neck 8. Urinary retention, presumed acute, present on admission Dispo: transferred to SNF for continued therapies. Hospital Course: Mr. Mcelroy is a 72M with PMH COPD on home O2, active smoker, BPH who comes in to the hospital with multiple concerns, but primarily for weakness. He was found to be markedly hypercalcemic with diffuse bone lucencies consistent with multiple myeloma. He received IV fluids, calcitonin, and zometa with improvement in his calcium to 10.2 on the day of discharge from 15.5 on admission. He had an elevated creatinine, also likely from dehydration which improved slightly with IV fluids and was improving to a creatinine of 1.7 on the day of discharge from a peak of 1.9. His baseline is not currently known. Ultrasound showed mild right hydronephrosis without any stones. This may have been from urinary retention given ash placement required but etiology is not clear at this time. He had an MRI given facial droop on presentation that was negative for CVA and is likely related to hypercalcemia as he did have improvement with above therapies. SPEP, immunoglobulins and light chains were sent as part of presumed myeloma workup. Immunoglobulins were largely unreamarkable, SPEP is pending, and light chains showed both elevated kappa and lambda chains. UPEP was not ordered. He had continued weakness despite improvement in his calcium level, was recommended for transfer to SNF for continued therapies. He will need follow up with oncology in the near future for presumed multiple myeloma. There is also a skin growth on his back that should have an outpatient biopsy as well. Additionally he was found to have a UTI on admission, possible in setting of urinary retention, with cultures growing MSSA. He was discharged on doxycycline given reported penicillin allergy based on urine culture sensitivities to complete therapy after course started with ceftriaxone during his hospital stay. Time Spent with Patient Time spent: Greater than 30 minutes Exam Vital Signs (past 8 hours): - 09/06/22 05:00 09/06/22 04:00 09/06/22 08:00 Temperature 98.5 F 97.5 F L Pulse Rate 65 72 Respiratory Rate 18 18 Blood Pressure 143/68 H 158/77 H Pulse Oximetry 96 96 93 Oxygen Delivery Method Nasal Cannula Humidification Oxygen Flow Rate 1 1 0 Oxygen Delivery Method Nasal Cannula,Humidification Oxygen Flow Rate 0 Narrative Exam Narrative: GEN: no acute distress, chronically ill appearing, near cachectic appearing. HEENT: moist mucous membranes, PERRL SKIN: fleshy mass on back of head CV: regular rate and rhythm, no murmurs PULM: clear bilaterally, no wheezes, rhonchi, rales ABD: soft, nontender, nondistended, no organomegaly, normal bowel sounds EXT: warm and well perfused with no edema NEURO: awake, alert but falls asleep easily, oriented, normal upper and lower extremity strength bilaterally Objective Labs 09/06/22 05:15 09/06/22 05:15 Labs: Laboratory Results - last 24 hr 09/04/22 09/06/22 09/06/22 05:45 05:15 05:15 WBC 9.2 RBC 3.79 L Hgb 11.5 L Hct 33.5 L MCV 88.4 MCH 30.4 MCHC 34.4 RDW 13.7 Plt Count 217 Neut % (Auto) 87.1 H Lymph % (Auto) 4.5 L Ector % (Auto) 7.7 Eos % (Auto) 0.5 L Baso % (Auto) 0.2 Neut # (Auto) 8100 H Lymph # (Auto) 400 L Ector # (Auto) 700 Eos # (Auto) 0 Baso # (Auto) 0 Sodium 132 L Potassium 3.6 Chloride 100 Carbon Dioxide 30 BUN 34 H Creatinine 1.70 H Estimated GFR 42 L BUN/Creatinine Ratio 20.0 Glucose 95 Calcium 10.2 Magnesium 1.6 IgG 934 IgA 279 IgM 74 PFSH Medical History COPD (chronic obstructive pulmonary disease) Lumbar foraminal stenosis Lumbar stenosis with neurogenic claudication Tobacco abuse Surgical History H/O nasal polypectomy H/O: vasectomy History of ankle surgery History of hernia surgery History of lumbar surgery S/P lumbar spinal fusion Social History household members: spouse and none Smoking Status: Current every day smoker alcohol intake: current Discharge Plan Discharge Plan Patient Disposition: SNF Other facility: [facility] Discharge orders & Medications Prescriptions: New acetaminophen 325 mg Tablet 650 mg PO Q6H PRN (Reason: Fever/Mild Pain (1-3)) Qty: 60 0RF aspirin 81 mg Tablet,Delayed Release (Dr/Ec) 81 mg PO DAILY Qty: 30 0RF atorvastatin 80 mg tablet 80 mg PO BEDTIME Qty: 30 0RF doxycycline hyclate 100 mg Tablet 100 mg PO BID 3 Days Qty: 6 0RF Continued sildenafil [Viagra] 25 mg tablet 25 mg PO PRN PRN (Reason: Erectile Dysfunction) Qty: 0 celecoxib [Celebrex] 200 mg capsule 200 mg PO DAILY Qty: 30 2RF tamsulosin 0.4 mg capsule 0.8 mg PO BEDTIME albuterol sulfate [ProAir HFA] 90 mcg/actuation HFA aerosol inhaler 1 puff inhalation ONCE fluticasone propion-salmeterol [Advair Diskus] 500-50 mcg/dose blister with device 1 inh inhalation ONCE Follow up/Referrals: Inge Diaz MD [Primary Care Provider] - Visit Report/Discharge Packet Instructions: Strokes: Prevention (Alternative Therapy), Atorvastatin, Acetaminophen, Aspirin, Doxycycline (By mouth) Stand Alone Forms: Patient Portal/API Discharge Data Primary Care Provider: Inge iDaz
--- NOTE | 2022-09-06 12:03 | OT.IP.TRT ---
Current Diagnoses Hypercalcemia (09/03/22) Occupational Therapy Treatment Note M2 OT-IP Current Condition Start: 09/05/22 13:21 Freq: Status: Active Protocol: Document 09/05/22 13:22 CGR (Rec: 09/05/22 13:37 CGR [id number]) Occupational Therapy Current Condition Current Condition Evaluation Date 09/05/22 Treatment Diagnosis weakness, hypercalcemia, possible mets Diagnosis Onset Date 09/03/22 M3 OT- IP Subjective and Pain Start: 09/05/22 13:21 Freq: Status: Active Protocol: Document 09/06/22 11:47 [facility] (Rec: 09/06/22 12:52 [facility] [id number]) OT- Subjective Occupational Therapy Visit Type Type Treatment Note Visit Start Time 11:47 Visit Stop Time 12:03 Total Visit Minutes 16 Occupational Therapy Visit Comments Patient Comments Pt agreed to get to the recliner for lunch. Patient/Caregiver Goals To go to skilled rehab and get stronger first prior to going home. OT Pain Assessment Pain When Pain Assessed At Rest Pain Present Pain Present Pain Reported M4 OT- IP ADL's Start: 09/05/22 13:21 Freq: Status: Active Protocol: Document 09/06/22 11:47 [facility] (Rec: 09/06/22 12:52 [facility] [id number]) OT [id number] Comments OT Self-Feeding Comments Pt needing assist for set-up of his tray. OT ADL-Grooming Comments OT Grooming Comments Pt declined to perform OT ADL-Oral Care Comments Oral Care Comments Pt declined to perform OT ADL-Dressing Comments OT Dressing Comments not performed OT ADL-Toileting General Evaluation Toileting Ability Total Assistance Comments OT Toileting Comments ash OT ADL-Bathing Comments OT Bathing Comments Sponging off more appropriate due to pt's decreased activity tolerance. M5 OT- IP IADL's Start: 09/05/22 13:21 Freq: Status: Active Protocol: Document 09/05/22 13:22 CGR (Rec: 09/05/22 13:37 [facility] [id number]) OT-Instrumental Activities of Daily Living Deficits IADL Deficits Identified Deficits Home Safety Awareness Awareness of Need for Assistance at Home Good Awareness Ability to Problem Solve Emergency Able to Problem Solve Situations Medication Management Medication Management Comments Pt was responsible for this task for him and his as her caregiver. Money Management Money Management Comments Pt was responsible for this task for him and his as her caregiver. Meal Preparation Meal Preparation Comments Pt was responsible for this task for him and his as her caregiver. Heavy Line Technician Heavy Line Technician Comments Pt was responsible for this task for him and his as her caregiver. 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 Able to go over energy conservations concepts with the pt. M7 OT- IP Mobility and Balance Start: 09/05/22 13:21 Freq: Status: Active Protocol: Document 09/06/22 11:47 [facility] (Rec: 09/06/22 12:52 [facility] [id number]) OT- Bed Mobility Assessment Supine to Sit Supine to Sit Assist Contact Guard Assistance,Head of Bed Elevated Scooting Scooting to Edge of Bed Standby Assistance OT-Transfer Assessment Sit to and From Stand Sit to and from Stand Standby Assistance Technique Transfer Destination Chair Transfer Technique Stand Step Pivot Devices Transfer Assistive Devices Gait Belt,Front Wheeled Walker Comments Mobility Comments Pt just having energy to transfer to the chair from the bed at this time. OT- Balance Assessment Sitting Balance and Reactions Static Sitting Balance Ability Good Dynamic Sitting Balance Ability Good Standing Balance and Reactions Static Standing Balance Ability Good Dynamic Standing Balance Ability Fair M8 OT- IP Objective Assessments Start: 09/05/22 13:21 Freq: Status: Active Protocol: Document 09/05/22 13:22 [facility] (Rec: 09/05/22 13:37 [facility] [id number]) OT Gross Range of Motion Upper Extremity Range of Motion Assessment Within Functional Limits OT Strength Upper Extremity Strength Assessment Within Functional Limits Comments Strength Comments 4/5 OT- Coordination Assessment Upper Extremity Finger to Nose Test Within Functional Limits Finger Tapping Test Within Functional Limits OT-Muscle Tone Assessment Muscle Tone WNL Yes OT Sensation Assessment Edema Edema Absent M9 OT- IP Assessment and Plan Start: 09/05/22 13:21 Freq: Status: Active Protocol: Document 09/06/22 11:47 [facility] (Rec: 09/06/22 12:52 [facility] [id number]) OT Summary Assessment and Plan Potential Rehabilitation Potential Fair Analytic Complexity at Evaluation Moderate Summary OT Impairments Pain,Balance,Functional Mobility,Grooming,Dressing, Toileting,Bathing,Toilet Transfers,Shower Transfers, Activity Tolerance Progress Towards Goals Slow Progress due to Activity Tolerance Assessment Summary Pt still weak and not much activity tolerance at this time and just tolerating a transfer to the recliner at this time and able to go over energy conservation concept. Pt now wanting to go to skilled rehab before going home. Goals Grooming Goal Independent Dressing Goal Independent Toileting Goal Independent Bathing Goal Independent Toilet Transfer Goal Independent Shower Transfer Goal Independent Days to Meet Goals 20 Frequency of Treatment Frequency Of Treatment Once a Day Treatment Plan OT Treatment Plan ADL Training,Functional Mobility,Patient/Family Education,Discharge Planning Other Treatment Recommendations and Next endurace activities, educated Treatment Focus on energy conservation Discharge Recommendations OT Discharge Recommendations SNF Rehab Transportation Needs at Discharge Wheelchair/Cabulance
--- NOTE | 2022-09-06 12:15 | CM.DPNOTE ---
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 Both patient and spouse have been to [facility] for rehab before Reviewed this referral w/Flor at [facility] and patient was inevitably accepted for admission today; transport arranged for picker operator at 1600 Of note- patient will be expected to follow up w/Oncology once he is home, not when at SNF. Oncology follow up and potential treatment course will not be covered financially while at [facility] Discussed above w/ patient and he remains agreeable to discharging to [facility] for skilled therapies and nursing and will establish w/Oncology once discharged back home Plan: Discharge to [facility] via w/c van at 1600 SMITHA Acevedo, kindly agreed to assist in coordination by faxing completed and signed DC orders, med list, DC summary and completed PASRR to [facility] Amirah Guallpa updated w/patient in his room JW
[2022-09-06 13:58] LABS: Free Kappa Lt Chains, Serum 49.1 mg/L (3.3-19.4); Free Lambda Lt Chains,Serum 25.1 mg/L (5.7-26.3); Parathyroid Hormone, Intact 13 pg/mL (15-65)
[2022-09-06] MEDS: NICOTINE 21 MG PATCH TOP (16:46)
--- NOTE | 2022-09-06 17:59 | PC.NURSE ---
0800: patient oriented, withdrawn. appears fatigued. accepted meds w/ bites of applesauce and sips of milk. reported generalized pain, PRN tylenol given w/ good effect. 1100: bridged w/ pillows, and laying on a warm blanket. ash patent, hesitant to allow staff to perform catheter care. 1600: plan for d/c to [facility], report phoned to nursing staff. new order for nicotine patch = placed on R deltoid. left floor at 1530, daughter Saloni and granddaughter present for xfer. packet w/ daughter.
[2022-09-07 15:46] LABS: Albumin 2.1 g/dL (2.9-4.4); Alpha 1 Globulin 0.4 g/dL (0.0-0.4); Alpha 2 Globulin 0.7 g/dL (0.4-1.0); Beta 1 Globulin 0.9 g/dL (0.7-1.3); Protein, Total 5.1 g/dL (6.0-8.5)
[2022-09-08 13:27] LABS: Calcium 13.6
== END 2022-09-06 17:30 | DRG 841 ==
LOC: ED 20:23 → AC 20:27
PROVIDERS: Internal Medicine; Admitting Provider Internal Medicine; Emergency Provider Emergency Medicine; PCP Student in an Organized Health Care Education/Training Program; Referring Provider Emergency Medicine; Visit Provider Internal Medicine
DX: C90.00 Multiple myeloma not having achieved remission (principal); J96.10 Chronic respiratory failure, unspecified whether with hypoxia or hypercapnia; N17.9 Acute kidney failure, unspecified; N30.00 Acute cystitis without hematuria; N13.30 Unspecified hydronephrosis; E83.52 Hypercalcemia; J44.9 Chronic obstructive pulmonary disease, unspecified; R29.810 Facial weakness; E87.6 Hypokalemia; F17.210 Nicotine dependence, cigarettes, uncomplicated; B95.61 Methicillin susceptible Staphylococcus aureus infection as the cause of diseases classified elsewhere; Z99.81 Dependence on supplemental oxygen; Z20.822 Contact with and (suspected) exposure to COVID-19
CPT/HCPCS: 36415; 70450; 70496; 70498; 70551; 71045; 76770; 80048; 80053; 80305; 80320; 81001; 82310; 82550; 82553; 82784; 83735; 83883; 83970; 84155; 84165; 84484; 85025; 85610; 85730; 87070; 87077; 87086; 87147; 87186; 87205; 87635; 92610; 93005; 93010; 93306; 94640; 94760; 96365; 96372; 97162; 97166; 97530; 99285; C9803; J0630; J0696; J1170; J1644; J2405; J3489; Q9967

== ENCOUNTER 2022-09-09 21:39 | Emergency (ER) | payer MEDICARE, OTHER, SELFPAY ==
[2022-09-03 21:43] VITALS: BMI 17.4
[2022-09-09] VITALS (8 sets, daily range): BP systolic 179–222; BP diastolic 83–130; PULSE 70–96; RESP 16–18; TEMP 36.7; O2SAT 89–96; BMI 17.4
--- NOTE | 2022-09-09 22:03 | DI.RAD.S_ITS ---
PROCEDURE: XR CLAVICLE RT INDICATIONS: pain / lump in clavicle area TECHNIQUE: 2 views of the clavicle were acquired. COMPARISON: None. FINDINGS: Bones: There is a mildly displaced and minimally angulated right mid clavicular shaft fracture. There are a few lucent lesions within the distal right clavicle. Soft tissues: No suspicious soft tissue calcifications. IMPRESSION: 1. Mildly displaced mid clavicular shaft fracture. 2. Indeterminate lucent lesions within the clavicle are nonspecific but may reflect an infiltrative process. Consider further evaluation with MRI when clinically feasible. Dictated by: Bashir Salter M.D. on 09/09/2022 at 23:37 Approved by: Bashir Salter M.D. on 09/09/2022 at 23:39
[2022-09-10] VITALS (13 sets, daily range): BP systolic 152–209; BP diastolic 77–107; PULSE 58–80; O2SAT 93–97
--- NOTE | 2022-09-10 01:10 | ED_ITS ---
HPI - Extremity Problem <Gumaro EnglishDO estefanía - Last Filed: 09/10/22 19:36> General Chief complaint: Extremity Problem,Nontraumatic Stated complaint: arm pain Time Seen by Provider: 09/09/22 21:54 Source: patient and EMS Mode of arrival: EMS History of Present Illness HPI Narrative: 72M daily smoker with history of COPD on home O2, recent hospitalization for hypercalcemia suspected underlying diagnosis of multiple myeloma presents rehab facility by EMS for evaluation right shoulder pain that started just prior to his arrival He was attempting to transfer himself in bed and was propping himself up with his right arm when he felt his right clavicle snap. He denies any numbness, tingling or weakness. He states his pain is worse when he moves and improves with rest. Denies any chest pain or shortness of breath and is otherwise well and free of complaint. Related Data Home Medications Medication Instructions Recorded Confirmed sildenafil 25 mg tablet (Viagra) 25 mg PO PRN PRN Erectile 12/02/15 09/05/22 Dysfunction #0 tabs albuterol sulfate 90 mcg/actuation 1 puff inhalation ONCE 03/09/22 09/05/22 aerosol inhaler (ProAir HFA) fluticasone 500 mcg-salmeterol 50 1 inh inhalation ONCE 03/09/22 09/05/22 mcg/dose blistr powdr for inhalation (Advair Diskus) tamsulosin 0.4 mg capsule 0.8 mg PO BEDTIME 03/09/22 09/05/22 Previous Rx's Medication Instructions Recorded celecoxib 200 mg capsule (Celebrex) 200 mg PO DAILY #30 caps 06/29/22 acetaminophen 325 mg tablet 650 mg PO Q6H PRN Fever/Mild Pain 09/06/22 (1-3) #60 tabs aspirin 81 mg tablet,delayed 81 mg PO DAILY #30 tabs 09/06/22 release atorvastatin 80 mg tablet 80 mg PO BEDTIME #30 tabs 09/06/22 Allergies Allergy/AdvReac Type Severity Reaction Status Date / Time varenicline [From Chantix] Allergy Severe Difficulty Verified 09/09/22 22:04 Breathing Penicillins [PENICILLINS] AdvReac Severe ITCHING Verified 09/09/22 22:04 bupropion AdvReac Intermediate TREMORS Verified 09/09/22 22:04 [From Wellbutrin SR] hydrocodone [HYDROCODONE] AdvReac Intermediate ITCHING Verified 09/09/22 22:04 Review of Systems <Gumaro Rios DO - Last Filed: 09/10/22 19:36> Review of Systems Narrative: GENERAL: Denies chills, fatigue, malaise, fever, sweats. HEENT: Denies sinus pain, ear pain, sore throat, difficulty swallowing, dizziness. RESPIRATORY: Denies dyspnea, cough, wheezing, hemoptysis, sputum. CARDIOVASCULAR: Denies chest pain, palpitations, orthopnea, edema, GASTROINTESTINAL: Denies nausea, vomiting, abdominal pain, diarrhea, constipation, melena. : Denies dysuria, frequency, incontinence, hematuria, urinary retention. MUSCULOSKELETAL: See HPI SKIN: Denies rash, skin lesions, or other NEUROLOGIC: Denies weakness, headache, numbness, change in speech, confusion, seizures, incoordination. PSYCHIATRIC: No concerning psychosocial issues. 12 point review of systems is negative except for those stated above Patient History <Gumaro Rios DO - Last Filed: 09/10/22 19:36> Medical History COPD (chronic obstructive pulmonary disease) Lumbar foraminal stenosis Lumbar stenosis with neurogenic claudication Tobacco abuse Surgical History H/O nasal polypectomy H/O: vasectomy History of ankle surgery History of hernia surgery History of lumbar surgery S/P lumbar spinal fusion Social History household members: spouse and none Smoking Status: Current every day smoker alcohol intake: current Smoking Status: Current every day smoker alcohol intake frequency: holidays/special occasions only Substance Use Type: does not use Exam <Gumaro Rios DO - Last Filed: 09/10/22 19:36> Narrative Exam Narrative: GENERAL: [72] year old patient appears older than stated age. Thin and chronically ill HEAD: Atraumatic. Normocephalic. EYES: Pupils equal round and reactive. Extraocular motions intact. No scleral i cterus. No injection or drainage. ENT: Nose without bleeding, purulent drainage. Throat without erythema, tonsillar hypertrophy or exudate. Airway patent. NECK: Trachea midline. Non tender CARDIOVASCULAR: Regular rate and rhythm without murmurs, gallops, or rubs. RESPIRATORY: Clear to auscultation. Breath sounds equal bilaterally. No wheezes, rales, or rhonchi. GASTROINTESTINAL: Abdomen soft, non-tender, nondistended. EXTREMITIES: R mid clavicle pain on palpation, closed, isolated and N/V intact BACK: Nontender without deformity or crepitance. No flank tenderness. NEURO: AOx3. SKIN: No rash or erythema of visible areas Initial Vital Signs Initial Vital Signs: Vital Signs Pulse Rate 79 09/09/22 21:48 Pulse Oximetry 94 09/09/22 21:48 <Hiram Doll DO - Last Filed: 09/10/22 08:15> Initial Vital Signs Initial Vital Signs: Vital Signs Pulse Rate 79 09/09/22 21:48 Pulse Oximetry 94 09/09/22 21:48 Course <Gumaro Rios DO - Last Filed: 09/10/22 19:36> Orders Ordered: Discontinued Medications Oxycodone/Acetaminophen (Oxycodone/Acetaminophen 5/325 Tablet) 1 tab PO NOW ONE Stop: 09/10/22 02:11 Last Admin: 09/10/22 02:19 Dose: 1 tab Documented By: GC Oxycodone/Acetaminophen (Oxycodone/Acetaminophen 5/325 Tablet) 1 tab PO NOW ONE Stop: 09/10/22 08:56 Last Admin: 09/10/22 08:59 Dose: 1 tab Documented By: AT Consultations Consultation #1: discussed with ortho Leonardo) sling and pain control, follow up with her clinic, but needs Heme/Onc referral for dx and likely tx of myeloma Vital Signs Vital signs: Vital Signs - 8 hr 09/10/22 00:30 09/10/22 00:30 09/10/22 01:00 Pulse Rate 70 Blood Pressure 195/94 H 186/88 H Pulse Oximetry 95 Oxygen Delivery Method Oxygen Flow Rate 09/10/22 01:00 09/10/22 01:30 09/10/22 01:30 Pulse Rate 67 62 Blood Pressure 178/87 H Pulse Oximetry 96 95 Oxygen Delivery Method Oxygen Flow Rate 09/10/22 02:00 09/10/22 02:00 09/10/22 02:30 Pulse Rate 70 Blood Pressure 162/90 H 167/83 H Pulse Oximetry 96 Oxygen Delivery Method Oxygen Flow Rate 09/10/22 02:30 09/10/22 03:00 09/10/22 03:00 Pulse Rate 65 61 Blood Pressure 167/81 H Pulse Oximetry 96 95 Oxygen Delivery Method Oxygen Flow Rate 09/10/22 03:30 09/10/22 03:30 09/10/22 04:00 Pulse Rate 62 Blood Pressure 161/83 H 165/84 H Pulse Oximetry 95 Oxygen Delivery Method Oxygen Flow Rate 09/10/22 04:00 09/10/22 07:00 09/10/22 07:00 Pulse Rate 65 66 Blood Pressure 152/77 H Pulse Oximetry 95 97 Oxygen Delivery Method Nasal Cannula Oxygen Flow Rate 0.5 09/10/22 07:30 09/10/22 07:30 Pulse Rate 58 L Blood Pressure 163/86 H Pulse Oximetry 96 Oxygen Delivery Method Nasal Cannula Oxygen Flow Rate 2 <Hiram Doll DO - Last Filed: 09/10/22 08:15> Orders Ordered: Discontinued Medications Oxycodone/Acetaminophen (Oxycodone/Acetaminophen 5/325 Tablet) 1 tab PO NOW ONE Stop: 09/10/22 02:11 Last Admin: 09/10/22 02:19 Dose: 1 tab Documented By: GC Oxycodone/Acetaminophen (Oxycodone/Acetaminophen 5/325 Tablet) 1 tab PO NOW ONE Stop: 09/10/22 08:56 Last Admin: 09/10/22 08:59 Dose: 1 tab Documented By: AT Vital Signs Vital signs: Vital Signs - 8 hr 09/10/22 00:30 09/10/22 00:30 09/10/22 01:00 Pulse Rate 70 Blood Pressure 195/94 H 186/88 H Pulse Oximetry 95 Oxygen Delivery Method Oxygen Flow Rate 09/10/22 01:00 09/10/22 01:30 09/10/22 01:30 Pulse Rate 67 62 Blood Pressure 178/87 H Pulse Oximetry 96 95 Oxygen Delivery Method Oxygen Flow Rate 09/10/22 02:00 09/10/22 02:00 09/10/22 02:30 Pulse Rate 70 Blood Pressure 162/90 H 167/83 H Pulse Oximetry 96 Oxygen Delivery Method Oxygen Flow Rate 09/10/22 02:30 09/10/22 03:00 09/10/22 03:00 Pulse Rate 65 61 Blood Pressure 167/81 H Pulse Oximetry 96 95 Oxygen Delivery Method Oxygen Flow Rate 09/10/22 03:30 09/10/22 03:30 09/10/22 04:00 Pulse Rate 62 Blood Pressure 161/83 H 165/84 H Pulse Oximetry 95 Oxygen Delivery Method Oxygen Flow Rate 09/10/22 04:00 09/10/22 07:00 09/10/22 07:00 Pulse Rate 65 66 Blood Pressure 152/77 H Pulse Oximetry 95 97 Oxygen Delivery Method Nasal Cannula Oxygen Flow Rate 0.5 09/10/22 07:30 09/10/22 07:30 Pulse Rate 58 L Blood Pressure 163/86 H Pulse Oximetry 96 Oxygen Delivery Method Nasal Cannula Oxygen Flow Rate 2 MDM - Extremity (Nontraumatic) <Gumaro Rios, DO - Last Filed: 09/10/22 19:36> Lab Data 09/10/22 02:30 09/10/22 02:30 Labs: Lab Results 09/10/22 09/10/22 Range/Units 02:30 02:30 WBC 7.6 (4.5-11.0) X10^3/uL RBC 3.70 L (4.5-5.9) X10^6/uL Hgb 11.0 L (13.5-17.5) g/dL Hct 32.7 L (41-53) % MCV 88.2 (80-100) fL MCH 29.7 (26-34) PG MCHC 33.7 (30-36) % RDW 14.0 (11.6-14.8) % Plt Count 260 (150-400) X10^3/uL Neut % (Auto) 74.9 (50-75) % Lymph % (Auto) 7.9 L (25-40) % Christian % (Auto) 15.2 H (3-14) % Eos % (Auto) 1.6 L (2-4) % Baso % (Auto) 0.4 (0-2) % Neut # (Auto) 5700 (9814-1121) /uL Lymph # (Auto) 600 L (0212-2286) /uL Christian # (Auto) 1200 H (0-900) /uL Eos # (Auto) 100 (0-450) /uL Baso # (Auto) 0 (0-100) /uL Sodium 133 L (137-145) mmol/L Potassium 3.3 L (3.4-5.1) mmol/L Chloride 101 (98-107) mmol/L Carbon Dioxide 30 (22-32) mmol/L BUN 23 H (9-20) mg/dL Creatinine 1.22 (0.66-1.25) mg/dL Estimated GFR > 60 (>60) mL/min BUN/Creatinine Ratio 18.9 (6-22) Glucose 91 (80-110) mg/dL Calcium 8.7 (8.4-10.2) mg/dL Magnesium 1.5 L (1.6-2.3) mg/dL Total Bilirubin 0.4 (0.2-1.3) mg/dL AST 57 (17-59) IU/L ALT 30 (<50) IU/L Alkaline Phosphatase 89 (38-126) U/L Total Creatine Kinase 92 (55-170) U/L CK-MB (CK-2) TNP CK-MB (CK-2) Rel Index TNP Troponin I 0.045 H (0.01-0.034) ng/mL Total Protein 5.2 L (6.3-8.2) g/dL Albumin 2.5 L (3.5-5.0) g/dL Globulin 2.7 (1.7-4.1) g/dL Albumin/Globulin Ratio 0.9 L (1.0-2.8) MDM Narrative Medical decision making narrative: 72-year-old male presents with pain in his right clavicle after attempting to transfer himself and feeling a snap. Imaging demonstrates clavicular fracture which is concerning for pathologic fracture. Recent hospitalization demonstrates findings and concern for multiple myeloma. Patient had been deemed inappropriate for discharge home due to his overall poor health and was sent to a facility in [facility]. Patient refuses to go back to this facility stating that he had been asking for help when he was attempting to transfer himself and nobody came in he is concerned that this is the cause of his fracture. Line, labs ordered, LACTATION NURSE consult placed. Patient signed out to Dr. Doll for final disposition <Hiram Doll DO - Last Filed: 09/10/22 08:15> Lab Data Labs: Lab Results 09/10/22 09/10/22 Range/Units 02:30 02:30 WBC 7.6 (4.5-11.0) X10^3/uL RBC 3.70 L (4.5-5.9) X10^6/uL Hgb 11.0 L (13.5-17.5) g/dL Hct 32.7 L (41-53) % MCV 88.2 (80-100) fL MCH 29.7 (26-34) PG MCHC 33.7 (30-36) % RDW 14.0 (11.6-14.8) % Plt Count 260 (150-400) X10^3/uL Neut % (Auto) 74.9 (50-75) % Lymph % (Auto) 7.9 L (25-40) % Christian % (Auto) 15.2 H (3-14) % Eos % (Auto) 1.6 L (2-4) % Baso % (Auto) 0.4 (0-2) % Neut # (Auto) 5700 (1921-9707) /uL Lymph # (Auto) 600 L (7888-8255) /uL Christian # (Auto) 1200 H (0-900) /uL Eos # (Auto) 100 (0-450) /uL Baso # (Auto) 0 (0-100) /uL Sodium 133 L (137-145) mmol/L Potassium 3.3 L (3.4-5.1) mmol/L Chloride 101 (98-107) mmol/L Carbon Dioxide 30 (22-32) mmol/L BUN 23 H (9-20) mg/dL Creatinine 1.22 (0.66-1.25) mg/dL Estimated GFR > 60 (>60) mL/min BUN/Creatinine Ratio 18.9 (6-22) Glucose 91 (80-110) mg/dL Calcium 8.7 (8.4-10.2) mg/dL Magnesium 1.5 L (1.6-2.3) mg/dL Total Bilirubin 0.4 (0.2-1.3) mg/dL AST 57 (17-59) IU/L ALT 30 (<50) IU/L Alkaline Phosphatase 89 (38-126) U/L Total Creatine Kinase 92 (55-170) U/L CK-MB (CK-2) TNP CK-MB (CK-2) Rel Index TNP Troponin I 0.045 H (0.01-0.034) ng/mL Total Protein 5.2 L (6.3-8.2) g/dL Albumin 2.5 L (3.5-5.0) g/dL Globulin 2.7 (1.7-4.1) g/dL Albumin/Globulin Ratio 0.9 L (1.0-2.8) MDM Narrative Medical decision making narrative: 72-year-old male presents with pain in his right clavicle after attempting to transfer himself and feeling a snap. Imaging demonstrates clavicular fracture which is concerning for pathologic fracture. Recent hospitalization demonstrates findings and concern for multiple myeloma. Patient had been deemed inappropriate for discharge home due to his overall poor health and was sent to a facility in [facility]. Patient refuses to go back to this facility stating that he had been asking for help when he was attempting to transfer himself and nobody came in he is concerned that this is the cause of his fracture. Line, labs ordered, LACTATION NURSE consult placed. Patient signed out to Dr. Doll for final disposition Dr doll: Patient does have a left clavicle fracture. Potentially a pathologic fracture. Unfortunately we are not going to be able to find new placement for the patient since it is Monday in the emergency department. Patient will be discharged back to his current living facility where he can make arrangements on his own if he wishes. Discharge Plan Departure Patient Disposition: Home Clinical Impression: Fracture of clavicle Instructions: DI for Clavicle Fracture-Adult Activity Restrictions/Additional Instructions: Your x-ray today did show a collarbone fracture on the left. I recommend that you contact your primary care doctor for follow-up. You can wear the sling as tolerated. Prescriptions: No Action sildenafil [Viagra] 25 mg tablet 25 mg PO PRN PRN (Reason: Erectile Dysfunction) Qty: 0 acetaminophen 325 mg Tablet 650 mg PO Q6H PRN (Reason: Fever/Mild Pain (1-3)) Qty: 60 0RF aspirin 81 mg Tablet,Delayed Release (Dr/Ec) 81 mg PO DAILY Qty: 30 0RF atorvastatin 80 mg tablet 80 mg PO BEDTIME Qty: 30 0RF celecoxib [Celebrex] 200 mg capsule 200 mg PO DAILY Qty: 30 2RF tamsulosin 0.4 mg capsule 0.8 mg PO BEDTIME albuterol sulfate [ProAir HFA] 90 mcg/actuation HFA aerosol inhaler 1 puff inhalation ONCE fluticasone propion-salmeterol [Advair Diskus] 500-50 mcg/dose blister with device 1 inh inhalation ONCE Referrals: Inge Diaz MD [Primary Care Provider] - Stand Alone Forms: Patient Portal/API
[2022-09-10] MEDS: OXYCODONE/ACETAMINOPHEN 5/325 TABLET 1 TAB PO ×2 (02:19→08:59)
[2022-09-10 03:05] LABS: Add Manual Diff / Slide Review NO; Basophils Absolute Auto 0 /uL (0-100); Basophils Percent Auto 0.4 % (0-2); Eosinophils Absolute Auto 100 /uL (0-450); Eosinophils Percent Auto 1.6 % (2-4); Hematocrit 32.7 % (41-53); Lymphocytes Absolute Auto 600 /uL (1100-4500); Lymphocytes Percent Auto 7.9 % (25-40); Mean Corpuscular HGB Conc 33.7 % (30-36); Mean Corpuscular Hemoglobin 29.7 PG (26-34); Mean Corpuscular Volume 88.2 fL (80-100); Monocytes Absolute Auto 1200 /uL (0-900); Monocytes Percent Auto 15.2 % (3-14); Neutrophils Absolute Auto 5700 /uL (1500-7000); Neutrophils Percent Auto 74.9 % (50-75); Platelet Count 260 X10^3/uL (150-400); White Blood Cell Count 7.6 X10^3/uL (4.5-11.0)
[2022-09-10 03:14] LABS: Alanine Aminotransferase 30 IU/L (<50); Albumin 2.5 g/dL (3.5-5.0); Albumin Globulin Ratio 0.9 (1.0-2.8); Alkaline Phosphatase 89 U/L (38-126); Aspartate Aminotransferase 57 IU/L (17-59); BUN Creatinine Ratio 18.9 (6-22); Bilirubin Total 0.4 mg/dL (0.2-1.3); Blood Urea Nitrogen 23 mg/dL (9-20); Calcium 8.7 mg/dL (8.4-10.2); Carbon Dioxide 30 mmol/L (22-32); Chloride 101 mmol/L (98-107); Creatine Kinase 92 U/L (55-170); Estimated Glomerular Filt Rate > 60 mL/min (>60); Globulin 2.7 g/dL (1.7-4.1); Glucose 91 mg/dL (80-110); HEMOLYSIS < 15 (0-50); Magnesium 1.5 mg/dL (1.6-2.3); Potassium 3.3 mmol/L (3.4-5.1); Sodium 133 mmol/L (137-145); Total Protein 5.2 g/dL (6.3-8.2)
[2022-09-10 03:26] LABS: Troponin I 0.045 ng/mL (0.01-0.034)
--- NOTE | 2022-09-10 08:41 | PC.NURSE ---
Update called to [facility] and patient agrees to return to facility. Updated on plan for ambulance back.
--- NOTE | 2022-09-10 09:04 | PC.NURSE ---
Prior to discharge with [facility], Ortho Surgeon rounded and educated pt on importance to establish and follow up with oncology. Pt verbalizes understanding and note added to discharge paperwork.
--- NOTE | 2022-09-10 09:52 | P.CONS_ITS ---
History of Present Illness Consult details Date Patient Seen: 09/10/22 Time Patient Seen: 09:00 Chief complaint: arm pain Reason for consult: r clavicle fracture Requesting provider: Gumaro Rios Narrative: 72 yo male with r arm / shoulder pain -- was at [facility] recently was in with weaknees, hypercalemia (15), renal failure, + light chains and kappa/lamda ratio - likely consistent with New multiple myeloma diagnosis. has not seen oncolcogy-- this was recommend in hospitalist dc note but has not happened. last night pt reposrtely was asaking for help then tried to move himself and felt a pop and pain. at clavicle XR with nondisplaced fx through lytic lesions, and multiple seen --- consistent with pathology fracture, likely Multiple myeloma with recent lab studies and radiographic appearance. Patient does not seem aware of a confirmation MM diagnosis and asks for help getting into to see oncology. there is a social work note in chart about difficulties or unavailability? with oncology treatments while in SNF? Meds Home Medications and Allergies Home Medications Medication Instructions Recorded Confirmed Type sildenafil 25 mg tablet (Viagra) 25 mg PO PRN PRN Erectile 12/02/15 09/05/22 History Dysfunction #0 tabs albuterol sulfate 90 mcg/actuation 1 puff inhalation ONCE 03/09/22 09/05/22 History aerosol inhaler (ProAir HFA) fluticasone 500 mcg-salmeterol 50 1 inh inhalation ONCE 03/09/22 09/05/22 History mcg/dose blistr powdr for inhalation (Advair Diskus) tamsulosin 0.4 mg capsule 0.8 mg PO BEDTIME 03/09/22 09/05/22 History celecoxib 200 mg capsule (Celebrex) 200 mg PO DAILY #30 caps 06/29/22 09/05/22 Rx acetaminophen 325 mg tablet 650 mg PO Q6H PRN Fever/Mild Pain 09/06/22 Rx (1-3) #60 tabs aspirin 81 mg tablet,delayed 81 mg PO DAILY #30 tabs 09/06/22 Rx release atorvastatin 80 mg tablet 80 mg PO BEDTIME #30 tabs 09/06/22 Rx Allergies Allergy/AdvReac Type Severity Reaction Status Date / Time varenicline [From Chantix] Allergy Severe Difficulty Verified 09/09/22 22:04 Breathing Penicillins [PENICILLINS] AdvReac Severe ITCHING Verified 09/09/22 22:04 bupropion AdvReac Intermediate TREMORS Verified 09/09/22 22:04 [From Wellbutrin SR] hydrocodone [HYDROCODONE] AdvReac Intermediate ITCHING Verified 09/09/22 22:04 Review of Systems Review of Systems Narrative: bone pain, fatigue, weakness, recent hospitalization for hyperglycemia and renal failure Exam Vital Signs (past 8 hours): - 09/10/22 02:00 09/10/22 02:00 09/10/22 02:30 Pulse Rate 70 Blood Pressure 162/90 H 167/83 H Pulse Oximetry 96 Oxygen Delivery Method Oxygen Flow Rate 09/10/22 02:30 09/10/22 03:00 09/10/22 03:00 Pulse Rate 65 61 Blood Pressure 167/81 H Pulse Oximetry 96 95 Oxygen Delivery Method Oxygen Flow Rate 09/10/22 03:30 09/10/22 03:30 09/10/22 04:00 Pulse Rate 62 Blood Pressure 161/83 H 165/84 H Pulse Oximetry 95 Oxygen Delivery Method Oxygen Flow Rate 09/10/22 04:00 09/10/22 07:00 09/10/22 07:00 Pulse Rate 65 66 Blood Pressure 152/77 H Pulse Oximetry 95 97 Oxygen Delivery Method Nasal Cannula Oxygen Flow Rate 0.5 09/10/22 07:30 09/10/22 07:30 09/10/22 08:00 Pulse Rate 58 L Blood Pressure 163/86 H 169/87 H Pulse Oximetry 96 Oxygen Delivery Method Nasal Cannula Oxygen Flow Rate 2 09/10/22 08:00 09/10/22 08:30 09/10/22 08:30 Pulse Rate 71 80 Blood Pressure 158/107 H Pulse Oximetry 95 93 Oxygen Delivery Method Room Air Nasal Cannula Oxygen Flow Rate 2 Oxygen Delivery Method Nasal Cannula Oxygen Flow Rate 2 Narrative Exam Narrative: NAD in bed-- [facility] A&O LCTAB RRR RUE in sling no skin tenting NV intact Objective Imaging clavicle xr: My impression: 2v R clavicle -- min displaced mid shaft clavicle fx with multiple lucent lesions consistent with pathologic fracture Radiologist's impression: MPRESSION:? ? 1. Mildly displaced mid clavicular shaft fracture. ? 2. Indeterminate lucent lesions within the clavicle are nonspecific but may reflect an infiltrative process.? Consider further evaluation with MRI when clinically feasible. ? Labs 09/10/22 02:30 09/10/22 02:30 Labs: Laboratory Results - last 24 hr 09/10/22 09/10/22 02:30 02:30 WBC 7.6 RBC 3.70 L Hgb 11.0 L Hct 32.7 L MCV 88.2 MCH 29.7 MCHC 33.7 RDW 14.0 Plt Count 260 Neut % (Auto) 74.9 Lymph % (Auto) 7.9 L Morgan % (Auto) 15.2 H Eos % (Auto) 1.6 L Baso % (Auto) 0.4 Neut # (Auto) 5700 Lymph # (Auto) 600 L Morgan # (Auto) 1200 H Eos # (Auto) 100 Baso # (Auto) 0 Sodium 133 L Potassium 3.3 L Chloride 101 Carbon Dioxide 30 BUN 23 H Creatinine 1.22 Estimated GFR > 60 BUN/Creatinine Ratio 18.9 Glucose 91 Calcium 8.7 Magnesium 1.5 L Total Bilirubin 0.4 AST 57 ALT 30 Alkaline Phosphatase 89 Total Creatine Kinase 92 CK-MB (CK-2) TNP CK-MB (CK-2) Rel Index TNP Troponin I 0.045 H Total Protein 5.2 L Albumin 2.5 L Globulin 2.7 Albumin/Globulin Ratio 0.9 L [facility], [facility] Medical History COPD (chronic obstructive pulmonary disease) Lumbar foraminal stenosis Lumbar stenosis with neurogenic claudication Tobacco abuse Surgical History H/O nasal polypectomy H/O: vasectomy History of ankle surgery History of hernia surgery History of lumbar surgery S/P lumbar spinal fusion Social History household members: spouse and none Tobacco & Substance Use Smoking Status: Current every day smoker alcohol intake: current Assessment & Plan Assessment and plan (1) Pathologic clavicular fracture: Status: Acute (2) Multiple myeloma: Qualifiers: Multiple myeloma remission status: unspecified Qualified Code(s): C90.00 - Multiple myeloma not having achieved remission Status: Acute Plan 1. R pathologic clavicle fx, rec sling for comfort and oncology for primary disease treatment. suspected path fracture often heal with primary treatment, no surgery indicated at this time. 2. needs oncology referral/eval. possible biopsy if MM not confirmed otherwise-- labs from hospitalization: kappa free chains 49.1, kappa/lamda ratio 1.96-- moderate medical decision making- discussed with ER also discussed conundrum of sNF and oncology care with hospitalist Dr. Blanco. nonop tx clavicle fx. ne eded referral and follow up with oncology. will send referral to try to facilitate this. Time Spent With Patient Time with patient: 30 to 49 minutes with 50% spent counseling/coordinating care
--- NOTE | 2022-09-12 11:56 | ONC.MSW ---
T/C-Called Dr. Olea/Orthopedist back re: her wanting pt to be seen in Oncology urgently for probable new multiple myeloma dx/fracture. Called pt's PCP, Inge Diaz at [facility], left a message that we need an urgent referral placed. Prior-Auth not necessary due to his primary insurance being Medicare.
--- NOTE | 2022-09-12 13:30 | ONC.MSW ---
T/C-Left message for pt that we are actively working on getting his referral from his PCP, that they did call this [employer] back, and are working on getting it to us urgently.
== END 2022-09-10 09:06 | disposition home or self-care (01) ==
PROVIDERS: Emergency Medicine; Emergency Provider Emergency Medicine; PCP Student in an Organized Health Care Education/Training Program
DX: S42.031A Displaced fracture of lateral end of right clavicle, initial encounter for closed fracture (principal); C90.00 Multiple myeloma not having achieved remission
CPT/HCPCS: 36415; 73000; 80053; 82550; 83735; 84484; 85025; 99284